=== PATIENT | female | born 1970 | race Caucasian/White ===

== ENCOUNTER 2020-04-05 16:15 | Emergency (ER) | payer OTHER ==
[~2020-04-05] VITALS: Ht 165.1 cm; Wt 68.9 kg
[2020-04-05] MEDS ORDERED: HYDROMORPHONE 1MG/1ML INJ IV STA ×2 (16:22→19:04)
[2020-04-05] MEDS ORDERED: ONDANSETRON HCL INJ 2MG/ML 2ML 2 MG/ML VIAL IV STA ×2 (16:22→19:04)
--- NOTE | 2020-04-05 16:37 | Emergency Department Note ---
History of Present Illnes History of Present Illness Chief Complaint: Abdominal Complaints History of Present Illness This is a 49 year old female patient is here for abdominal swelling, pain diffuse 8 out of 10 with no modifying factors and "" coffee-ground emesis. Patient also noted bright red blood per rectum. This has been going on for 1 week. Patient did see her GI doctor Nikki. Pt told she was hiatal hernia and erosive gastritis. . Onset (how long ago): week(s) (1) Location: abd, diffuse Quality: ache Radiation: Reports non-radiation Severity: severe Onset quality: gradual Duration (how long): week(s) Progression: worsening Chronicity: new Context: Denies recent illness, Denies recent surgery, Denies recent immobiliz ation Relieving factors: none Exacerbating factors: none Associated symptoms: Reports loss of appetite, Reports nausea/vomiting (GRUPO HAMPTON MD) Past Medical/Family History Physician Review I have reviewed the patient's past medical and family history. Any updates have been documented here. (GRUPO HAMPTON MD) Review of Systems Review of Systems Constitutional: Reports as per HPI EENTM: Reports no symptoms Cardiovascular: Reports no symptoms Respiratory: Reports no symptoms Gastrointestinal: Reports as per HPI Genitourinary: Reports no symptoms Musculoskeletal: Reports no symptoms Integumentary: Reports no symptoms Neurological: Reports no symptoms Psychological: Reports no symptoms Endocrine: Reports no symptoms Hematological/Lymphatic: Reports no symptoms (GRUPO HAMPTON MD) Physical Exam Related Data Allergies: Uncoded Allergies: ARITHROMYCIN (Allergy, Severe, RASH, SWELLING IN THROAT, 04/05/20) Physical Exam CONSTITUTIONAL Constitutional: Present well-developed, Present well-nourished HENT HENT: Present normocephalic, Present atraumatic, Present oropharynx clear/nav[address] st, Present nose normal HENT L/R: Present left ext ear normal, Present right ext ear normal EYES Eyes: Reports PERRL, Reports conjunctivae normal NECK Neck: Present ROM normal PULMONARY Pulmonary: Present effort normal, Present breath sounds normal CARDIOVASCULAR Cardiovascular: Present regular rhythm, Present heart sounds normal, Present capillary refill normal, Present normal rate GASTROINTESTINAL Abdominal: Present soft, Present bowel sounds normal, Present distension, Present tender (diffusely TTP, no peritonitis ) GENITOURINARY Genitourinary: Present exam deferred SKIN Skin: Present warm, Present dry MUSCULOSKELETAL Musculoskeletal: Present ROM normal NEUROLOGICAL Neurological: Present alert, Present oriented x 3, Present no gross motor or sensory deficits PSYCHOLOGICAL Psychological: Present mood/affect normal, Present judgement normal (GRUPO HAMPTON MD) Results Laboratory Lab results reviewed: Yes Laboratory comments Laboratory Tests Test 04/05/20 16:58 White Blood Count 7.76 x10e3/uL (4.8-10.8) Red Blood Count 4.43 x10e6/uL (3.6-5.1) Hemoglobin 13.4 g/dL (12.0-16.0) Hematocrit 40.6 % (34.2-44.1) Mean Corpuscular Volume 91.6 fL (81-99) Mean Corpuscular Hemoglobin 30.2 pg (28-32) Mean Corpuscular Hemoglobin Concent 33.0 g/dL (31-35) Red Cell Distribution Width 12.3 % (11.7-14.4) Platelet Count 277 x10e3/uL (140-360) Neutrophils (%) (Auto) 58.5 % (38.7-80.0) Lymphocytes (%) (Auto) 31.7 % (18.0-39.1) Monocytes (%) (Auto) 6.2 % (4.4-11.3) Eosinophils (%) (Auto) 2.2 % (0.0-6.0) Basophils (%) (Auto) 0.5 % (0.0-1.0) Neutrophils # (Auto) 4.5 (2.1-6.9) Lymphocytes # (Auto) 2.5 (1.0-3.2) Monocytes # (Auto) 0.5 (0.2-0.8) Eosinophils # (Auto) 0.2 (0.0-0.4) Basophils # (Auto) 0.0 (0.0-0.1) Absolute Immature Granulocyte (auto 0.07 x10e3/uL (0-0.1) Prothrombin Time 12.5 seconds (11.9-14.5) Prothromb Time International Ratio 0.89 Urine Color Yellow (YELLOW) Urine Clarity Sl cloudy (CLEAR) Urine pH 5 (5 - 7) Urine Specific [place] 1.010 (1.010-1.025) Urine Protein Negative (NEGATIVE) Urine Glucose (UA) Negative (NEGATIVE) Urine Ketones Negative (NEGATIVE) Urine Blood Trace (NEGATIVE) Urine Nitrite Negative (NEGATIVE) Urine Bilirubin Negative (NEGATIVE) Urine Urobilinogen 0.2 mg/dL (0.2 - 1) Urine Leukocyte Esterase Negative (NEGATIVE) Urine RBC 0-5 /HPF (0-5) Urine WBC None /HPF (0-5) Urine Epithelial Cells Few /LPF (NONE) Urine Bacteria Rare /HPF (NONE) Urine Hyaline Casts 2-5 (0-1) Sodium Level 139 mmol/L (136-145) Potassium Level 3.7 mmol/L (3.5-5.1) Chloride Level 106 mmol/L (98-107) Carbon Dioxide Level 20 mmol/L (22-29) Anion Gap 16.7 mmol/L (8-16) Blood Urea Nitrogen 14 mg/dL (7-26) Creatinine 0.80 mg/dL (0.57-1.11) Estimat Glomerular Filtration Rate > 60 ML/MIN (60-) BUN/Creatinine Ratio 18 (6-25) Glucose Level 82 mg/dL (74-118) Calcium Level 9.7 mg/dL (8.4-10.2) Total Bilirubin 0.2 mg/dL (0.2-1.2) Aspartate Amino Transf (AST/SGOT) 14 IU/L (5-34) Alanine Aminotransferase (ALT/SGPT) 15 IU/L (0-55) Alkaline Phosphatase 173 IU/L (40-150) Total Protein 7.6 g/dL (6.5-8.1) Albumin 4.1 g/dL (3.5-5.0) Globulin 3.5 g/dL (2.3-3.5) Albumin/Globulin Ratio 1.2 (0.8-2.0) Lipase 16 U/L (8-78) (REID,PEYTON DO) Imaging Imaging results reviewed: Yes Impressions [place] [address] Patient Name: KAREN HENRY MR #: [id number] : 1970 Age/Sex: 49/F Req #: [id number] Adm Physician: Ordered by: GRUPO HAMPTON MD Report #: [id number] Location: ER Room/Bed: Procedure: [id number] CT/CTA ABD/PELVIS Exam Date: 04/05/20 Exam Time: 1814 REPORT STATUS: Signed EXAM: CTA of the Abdominal Aorta and Pelvic Arteries WITH Contrast INDICATION: Diffuse abdominal pain. COMPARISON: None. TECHNIQUE: Multi-detector CT technology was employed. CTA of the abdomen and pelvis was performed after the administration of IV contrast. IV CONTRAST: 150 mL of Omnipaque 350 ORAL CONTRAST: None COMPLICATIONS: None RADIATION DOSE: Total DLP: 1218.58 mGy*cm Estimated effective dose: (DLP x 0.015 x size factor) mSv CTDIvol has been reviewed. It is below the limits set by the Radiation Protocol Committee (RPC). Dose modulation, iterative reconstruction, and/or weight based adjustment of the mA/kV was utilized to reduce the radiation dose to as low as reasonably achievable. For optimization of anatomic evaluation, multiplanar reconstruction, maximum intensity projections, and advanced 3-D off-line postprocessing were performed on a dedicated stand-alone workstation under the direct supervision of the interpreting physician. FINDINGS: Potential study limitations: None. VASCULAR WITH ADVANCED 3-D OFF-LINE POSTPROCESSING: The abdominal aorta is normal in course, caliber, and contour. There is no acute aortic pathology . Aortic plaques: Mild. The abdominal aorta measures: 2.3 x 2.2 cm at the supramesenteric segment 2.0 x 2.0 cm at the mesenteric segment 1.9 x 1.9 cm at the renal segment 1.6 x 1.5 cm at the mid infrarenal segment 1.4 x 1.4 cm at the aortic bifurcation. The celiac axis, SMA, and RAJENDRA are patent. There are single renal arteries bilaterally, both of which appear patent. The pelvic arteries are normal in caliber and contour. There are mild atherosclerotic changes of the pelvic arteries. 1.1x 1.0 cm at the right common iliac artery 1.1 x 1.1 cm at the right external iliac artery LOWER CHEST: Unremarkable. ABDOMEN: The liver, gallbladder, spleen, and pancreas appear normal. The adrenal glands appear normal. Both kidneys are normal in size, shape, and density. There is no abnormal mass or hydronephrosis. There is a 2 mm nonobstructive stone in the midpole of the left kidney. PELVIS: There is no significant retroperitoneal adenopathy. No free fluid or free air within the abdomen or pelvis. The bowel appears unremarkable. The urinary bladder appears normal. BONES: Status post L4-L5 posterior spinal fusion. No evidence of hardware complication. Multilevel degenerative spine disease with no suspicious osteolytic or osteoblastic lesions. Soft tissues: Incompletely imaged dense structure in the anterior lower pelvic soft tissues. IMPRESSION: 1. Normal abdominal aorta. No acute abdominal aortic pathology. 2. Nonobstructive left nephrolithiasis. Signed by: Harhs Cardenas MD on 04/05/2020 7:34 PM Dictated By: HARSH CARDENAS MD 33 Transcribed By: CATALINA on 04/05/201933 COPY TO: GRUPO HAMPTON MD~ (PEYTON REID DO) Assessment & Plan Medical Decision Making MDM Patient is a 49-year-old female with diffuse abdominal pain, abdominal distention and rectal bleeding with "coffee-ground emesis. The patient appears to be cirrhotic, we will workup and discuss case with GI doctor. (GRUPO HAMPTON MD) [facility] cbc and CTA abdomen reviewed. Patient with marked improvement in symptoms s/p IV pain medication. Dr Lopez called but no return in phone call. Plan to discharge to home. (PEYTON REID DO) Reassessment Reassessment EKG shows interpreted by me sinus tachycardia, normal intervals, normal axis, no acute ST changes. (GRUPO HAMPTON MD) Assessment & Plan Final Impression: (1) Abdominal pain (2) Nausea & vomiting (GRUPO HAMPTON MD) Depart Disposition: HOME, SELF-CARE Last Vital Signs Date Time Temp Pulse Resp B/P (MAP) Pulse Ox O2 Delivery O2 Flow Rate FiO2 04/05/20 19:57 97 18 100 04/05/20 19:03 98.4 112/84 Room Air (PEYTON REID DO) Medications in the ED Hydromorphone HCl 0.5 mg NOW STAT IV ; Start 04/05/20 at 16:22; Stop 04/05/20 at 16:23; Status UNV Ondansetron HCl 4 mg NOW STAT IV ; Start 04/05/20 at 16:22; Stop 04/05/20 at 16:23; Status UNV (GRUPO HAMPTON MD) Medications in the ED Hydromorphone HCl 0.5 mg NOW STAT IV Last administered on 04/05/20at 17:17; Admin Dose 0.5 MG; Start 04/05/20 at 16:22; Stop 04/05/20 at 20:03; Status DC Ondansetron HCl 4 mg NOW STAT IV Last administered on 04/05/20at 17:17; Admin Dose 4 MG; Start 04/05/20 at 16:22; Stop 04/05/20 at 20:03; Status DC Sodium Chloride 100 ml @ ud STK-MED ONCE .ROUTE ; Start 04/05/20 at 18:09; Stop 04/05/20 at 18:03; Status DC Iopamidol 74,000 mg STK-MED ONCE INJ ; Start 04/05/20 at 18:09; Stop 04/05/20 at 18:03; Status DC Hydromorphone HCl 1 mg NOW STAT IV Last administered on 04/05/20at 19:25; Admin Dose 1 MG; Start 04/05/20 at 19:04; Stop 04/05/20 at 20:03; Status DC Ondansetron HCl 4 mg NOW STAT IV Last administered on 04/05/20at 19:26; Admin Dose 4 MG; Start 04/05/20 at 19:04; Stop 04/05/20 at 20:03; Status DC (REID,PEYTON DO) GRUPO HAMPTON MD Apr 05, 2020 16:37 PEYTON REID DO Apr 05, 2020 19:45
[2020-04-05 17:12] LABS: BASOPHILS % 0.5 % (0.0-1.0); EOSINOPHILS # (AUTO) 0.2 (0.0-0.4); EOSINOPHILS % 2.2 % (0.0-6.0); HEMATOCRIT 40.6 % (34.2-44.1); HEMOGLOBIN 13.4 g/dL (12.0-16.0); LYMPHOCYTES # (AUTO) 2.5 (1.0-3.2); LYMPHOCYTES % 31.7 % (18.0-39.1); MEAN CORPUSCULAR HEMOGLOBIN 30.2 pg (28-32); MEAN CORPUSCULAR VOLUME 91.6 fL (81-99); MONOCYTES # (AUTO) 0.5 (0.2-0.8); MONOCYTES % 6.2 % (4.4-11.3); NEUTROPHILS # (AUTO) 4.5 (2.1-6.9); NEUTROPHILS % 58.5 % (38.7-80.0); PLATELET COUNT 277 x10e3/uL (140-360); RED BLOOD COUNT 4.43 x10e6/uL (3.6-5.1); RED CELL DISTRIBUTION WIDTH 12.3 % (11.7-14.4)
[2020-04-05 17:13] LABS: CLARITY,URINE SL CLOUDY (CLEAR); COLOR,URINE YELLOW (YELLOW); LEUKOCYTE ESTERASE ,URINE NEGATIVE (NEGATIVE); NITRITE,URINE NEGATIVE (NEGATIVE)
[2020-04-05 17:14] LABS: BILIRUBIN,URINE NEGATIVE (NEGATIVE); KETONES,URINE NEGATIVE (NEGATIVE); PROTEIN,URINE DIPSTICK NEGATIVE (NEGATIVE); URINE UROBILINOGEN 0.2 mg/dL (0.2 - 1)
[2020-04-05 17:23] LABS: INR 0.89; PROTHROMBIN TIME 12.5 seconds (11.9-14.5)
[2020-04-05 17:25] LABS: BACTERIA,URINE RARE /HPF; EPITHELIAL CELLS,URINE FEW /LPF; RBC,URINE 0-5 /HPF (0-5)
[2020-04-05 17:31] LABS: ALANINE AMINOTRANSFERASE 15 IU/L (0-55); ALBUMIN 4.1 g/dL (3.5-5.0); ALBUMIN/GLOBULIN RATIO 1.2 (0.8-2.0); ALKALINE PHOSPHATASE 173 IU/L (40-150); ANION GAP 16.7 mmol/L (8-16); BLOOD UREA NITROGEN 14 mg/dL (7-26); BUN/CREATININE RATIO 18 (6-25); CALCIUM 9.7 mg/dL (8.4-10.2); CARBON DIOXIDE 20 mmol/L (22-29); CHLORIDE 106 mmol/L (98-107); EST GLOMERULAR FILTRATION RATE > 60 ML/MIN (60-); GLUCOSE 82 mg/dL (74-118); LIPASE 16 U/L (8-78); POTASSIUM 3.7 mmol/L (3.5-5.1); SODIUM 139 mmol/L (136-145)
--- OUTSIDE RECORDS SUMMARY | 2020-04-05 17:48 | XMS REPORT | Clinical Summary ---
Author Author [employer] Organization [employer] Address Unknown Phone Unavailable Care Team Providers Care Prop Sawyer Name Role Phone HumphreymikalLucretia dawn Alexandra [employer] PCP Allergies Comments Active Allergy Reactions Severity Noted Date Erythromycin Rash Low 01/29/2008 Medications End Date Status Medication Sig Dispensed Refills Start Date Active albuterol (PROAIR HFA) 90 Inhale. 0 05/14 8/200 mcg/actuation inhaler 8 Active clonAZEPAM (KlonoPIN) 1 1 mg. 0 MG tablet 4 Active imipramine (TOFRANIL) 50 0 MG tablet 7 Active traMADol (ULTRAM) 50 mg 0 tablet 7 Active cyclobenzaprine 0 (FLEXERIL) 10 mg tablet 7 Active keTOROlac (TORadol) 10 mg 0 tablet 7 Active cyclobenzaprine TAKE ONE 40 tablet 0 (FLEXERIL) 10 mg TABLET BY 7 tabletIndications: MOUTH EVERY 8 History of spinal fusion, HOURS Lumbar radiculopathy NEEDED FOR MUSCLE SPASM Active gabapentin (NEURONTIN) TAKE ONE 60 capsule 2 300 mg capsule CAPSULE BY 8 MOUTH THREE TIMES DAILY Active Problems No known active problems Encounters Care Team Description Date Type Specialty Fran Luis MD Altered mental status, unspecified alter ed mental status type (Primary Dx) 10/17/2019 Emergency Emergency Medicine after 04/05/2019 Social History Date Tobacco Use Types Packs/Day Years Used Current Every Day Smoker Smokeless Tobacco: Never Used Drinks/Week oz/Week Comments Alcohol Use Yes Sex Assigned at Date Recorded Not on file Industry Job Start Date Occupation Not on file Not on file Not on file Travel End Travel History Travel Start No recent travel history available. Last Filed Vital Signs Reading Time Taken Comments Vital Sign 125/76 10/17/2019 6:28 PM [employer] Blood Pressure 89 10/17/2019 6:28 PM [employer] Pulse 36.6 C (97.8 F) 10/17/2019 6:28 PM [employer] Temperature 12 10/17/2019 6:28 PM [employer] Respiratory Rate 96% 10/17/2019 6:28 PM [employer] Oxygen Saturation - - Inhaled Oxygen Concentration 65.8 kg (145 lb) 10/17/2019 6:36 PM [employer] Weight 172.7 cm (5' 8") 10/17/2019 6:36 PM [employer] Height 22.05 10/17/2019 6:36 PM [employer] Body Mass Index Plan of Treatment Health Maintenance Due Date Last Done Comments CERVICAL CANCER SCREENING 1989 BREAST CANCER SCREENING 2018 COLONOSCOPY SCREENING 2018 SHINGLES VACCINES (#1) 2018 INFLUENZA VACCINE 05/13/2020 Procedures Comments Procedure Name Priority Date/Time Associated Diag nosis ECG 12-LEAD STAT 10/17/2019 8:05 PM [employer] ECG ED PRELIMINARY Routine 10/17/2019 INTERPRETATION 7:33 PM [employer] after 04/05/2019 Results * ECG 12 lead (10/17/2019 8:05 PM [employer]) Ventricular 77 [facility] rate Atrial rate 77 [facility] NE interval 158 [facility] QRSD interval 94 [facility] QT interval 382 [facility] QTC interval 432 [facility] P axis 1 13 [facility] QRS axis 1 33 [facility] T wave axis 49 [facility] EKG impression Normal sinus rhythm-Normal [facility] ECG-No previous ECGs available- Specimen Narrative Performed At This result has an attachment that is n ot available. 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 Previous ECG: Previous ECG: Unavailable Interpretation: Interpretation: normal Rate: ECG rate: 77 bpm ECG rate assessment: normal Rhythm: Rhythm: sinus rhythm Ectopy: Ectopy: none QRS: QRS axis: Normal QRS intervals: Normal Conduction: Conduction: normal ST segments: ST segments: Normal T waves: T waves: normal Comments: Pr: 158 ms Qtc: 432 ms after 04/05/2019 Insurance Type Payer Benefit Subscriber ID Effective Phone Address Plan / Dates Group HMO [employer] xxxxxxxxx [id number] [employer] [facility] Advance Directives For more information, please contact: [phone] 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
--- OUTSIDE RECORDS SUMMARY | 2020-04-05 17:49 | XMS REPORT ---
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 [place] treated with anti TB drug for 9 months in [address] active [facility] Hypercalcemia active [facility] [place] Hyperlipidemia active [facility] Menopause-related vasomotor symptoms, hot flashes active [facility] Breast, screening for malignant neoplasm active [facility] Well woman exam active [facility] Febrile illness active Ilda Curtis Pre-exposure Prophylaxis active Petra Minor DEPRESSIVE DISORDER, MAJOR, RECURRENT EPISODE, MODERATE active Danna Hunter GENERALIZED ANXIETY DISORDER active Danna martin PTSD active Danna Hunter BMI 21.0-21.9 active Tommy Cottrell Anxiety completed - Danna Hunter Lump, in scalp active Mahim Shuja Restless leg syndrome active Mahim Shuja Chronic back pain active Mahim Shuja Rash active Zackary Abdirizak Possibly 2* med ication given onset timing per patient relative to new medication; Resolved at time of office visit. Joint stiffness active Zackary Abdirizak chronic, AM x 30 minutes, hands, knees primarily Failed back syndrome of lumbar spine active Zackary Abdirizak Medication monitoring active Zackary Abdirizak Hx of spinal fusion active Zackary Abdirizak History of substance abuse active Zackary Abdirizak A mphetamine + October 2017 Smoker active Zackary Abdirizak Bipolar I dsord ,most recent epsd, unspec active Jaylin Loredo ENCOUNTERS Date Type Provider Location Encounter Diagn osis - Ambulatory Encounter Margaux Villafanasylvia rodriguezstanley [place] UNK - Ambulatory Encounter Radhaharjit Wilkinsonkeagan Melendrez nkLogic UNK - Ambulatory Encounter Danna Hunter UNK - Ambulatory Encounter Danna Hunter UNK - Ambulatory Encounter Danna Hunter UNK - Ambulatory Encounter Danna Novak UNK - Ambulatory Encounter Radha Minhkeagan Melendrez nkLogic UNK - Ambulatory Encounter Radha Minhkeagan Melendrez nkLogic UNK - Ambulatory Encounter Dede Mao UNK - Ambulatory Encounter Nicolasa Looney UNK - Ambulatory Encounter Jason Rolle UNK - Ambulatory Encounter Radha Melendrez nkLogic UNK - Ambulatory Encounter Jason MittalLogzeina UNK - Ambulatory Encounter Danna Hunter UNK - Ambulatory Encounter Jason Boudreaux Exposure to COVID-19 coronav irus - Ambulatory Encounter Minh Cifuentes UNK - Ambulatory Encounter Tommy Cottrell [facility] [place] [facility] [facility] [place] - Ambulatory Encounter [place] [facility] [place] - Ambulatory Encounter [place] [facility] [place] - Ambulatory Encounter [place] [facility] [place] - Ambulatory Encounter [place] [facility] [place] - Ambulatory Encounter Tommy Connell [place] [facility] [place] [facility] [place] Victorina Marcus Hx of tuber culosis - Ambulatory Encounter Danna Nye UNK - Ambulatory Encounter Danna Hunter UNK - Ambulatory Encounter Fax Status [facility] UNK - Ambulatory Encounter Fax Status [facility] UNK - Ambulatory Encounter Fax Status [facility] UNK - Ambulatory Encounter Nicolasa escamillamethais [facility] [place] [facility] [place] Elicia Chicas UNK - Ambulatory Encounter [place] [facility] [place] HyperlipidemiaHypercal cemiaElevated alkaline phosphatase - Ambulatory Encounter Tommy Cottrell [facility] [place] [facility] [place] UNK - Ambulatory Encounter [place] C h[place]ian [place] [facility] UNK - Ambulatory Encounter [place] C hristian [place] [facility] [place] UNK - Ambulatory Encounter [place] C [place]ian [place] [facility] [place] UNK - Ambulatory Encounter Tommy Guaman Ethel Kim [place] [facility] [place] [facility] [place] Victorina Marcus Well woman examBreast, screening for malignant neoplasmMenopause-related vasomotor symptoms, hot flashes - Ambulatory Encounter Danna Devante dimitri Danna Dale UNK - Ambulatory Encounter Danna Devante dimitri Danna Hunterdimitri Nye UNK - Ambulatory Encounter Danna Devante dimitri Danna Hunterdimitri Scott UNK - Ambulatory Encounter Danna Devante dimitri Danna Hunterdimitri Novak UNK - Ambulatory Encounter Danna Devante dimitri Danna Hunter UNK - Ambulatory Encounter Danna Devante dimitri Danna Hunterdimitri Rivera UNK - Ambulatory Encounter Danni harper UNK - Ambulatory Encounter Ildamago Monte Kelsey [facility] Chasidy Abraham UNK - Ambulatory Encounter Ilda Curtis LinkLogic UNK - Ambulatory Encounter Danna Devante Hunter UNK - Ambulatory Encounter Danna Devante Hunter UNK - Ambulatory Encounter Ny Chicas UNK - Ambulatory Encounter Ilda MittalLogzeina UNK - Ambulatory Encounter Ilda Serrano grace UNK - Ambulatory Encounter Ilda Rosales Sukumar Febrile illness - Ambulatory Encounter Danna Devante Hunter Jaimee Novak UNK - Ambulatory Encounter Danna Devante Hunter Saskia Neves UNK - Ambulatory Encounter Danna Devante Hunter Saskia Neves UNK - Ambulatory Encounter Danna Devante Hunter Nicolasa Pearl UNK - Ambulatory Encounter Danna Devante Hunter UNK - Ambulatory Encounter Danna Devante Hunter Jaimee Finley UNK - Ambulatory Encounter Danna Devante Hunter UNK - Ambulatory Encounter Danna Devante Hunter UNK - Ambulatory Encounter Danna Devante Hunter Ursula Novak UNK - Ambulatory Encounter Danna Devante Hunter UNK - Ambulatory Encounter Danna Devante Hunter UNK - Ambulatory Encounter Danna Devante Hunter Angelo Aretha UNK - Ambulatory Encounter Danna Devante Hunter Ursula Rivera UNK - Ambulatory Encounter [facility] Provider Fly Zimmerman UNK - Ambulatory Encounter Dannadakotah Hnuter UNK - Ambulatory Encounter Dannadakotah Hunter Ursula Nye UNK - Ambulatory Encounter Patric No [facility] UNK - Ambulatory Encounter Patric No [facility] UNK - Ambulatory Encounter Fly Zimmerman UNK - Ambulatory Encounter Patric Lambert Minor Pre-exposure Prophylaxis - Ambulatory Encounter [facility] Provider Fly Zimmerman UNK - Ambulatory Encounter Ny [facility] UNK - Ambulatory Encounter Dannadakotah Hunter Mayelin Scott UNK - Ambulatory Encounter Dannadakotah Hunter UNK - Ambulatory Encounter Danna Devante Hunter Rosie Isaac UNK - Ambulatory Encounter Fax Status LinkLogic UNK - Ambulatory Encounter Dannadakotah Hunter UNK - Ambulatory Encounter Danna Devante Hunter [facility]Logic UNK - Ambulatory Encounter Danna Hunter UNK - Ambulatory Encounter Fax Status [facility] UNK - Ambulatory Encounter Tommy Hubert Parry [facility] UNK - Ambulatory Encounter Danna Hunter UNK - Ambulatory Encounter Tommy Parry MedAdherence UNK - Ambulatory Encounter Danna Hunter UNK - Ambulatory Encounter Danna Hunter Ursula Nye DEPRESSIVE DISORDER, MAJOR, RECURRENT EPISODE, MODERATE - Ambulatory Encounter Danna Hunter Danna Mcodnald UNK - Ambulatory Encounter Danna Hunter [facility] UNK - Ambulatory Encounter Danna Hunter [facility] UNK - Ambulatory Encounter Danna Hunter UNK - Ambulatory Encounter Danna Hunter UNK - Ambulatory Encounter Danna Hunter UNK - Ambulatory Encounter Danna Hunter UNK - Ambulatory Encounter Dannadakotah Hunter Ursula Nye AnxietyPTSDGENERALIZED ANXIE TY DISORDER - Ambulatory Encounter Radha Boudreaux UNK - Ambulatory Encounter Madelyn Parry Med Adherence UNK - Ambulatory Encounter Madelyn Parry Med Adherence UNK - Ambulatory Encounter Dmitriy Izaguirre Sh uja UNK - Ambulatory Encounter Elijah Manuel lucas UNK - Ambulatory Encounter Miryam Ruano [facility] Manuel Jackson Olivia Colindres UNK - Ambulatory Encounter Tommy Cottrell LinkLogic Dmitriy Jackson UNK - Ambulatory Encounter Tommy Cottrell [facility] UNK - Ambulatory Encounter Elijah Manuel lucas Lump, in scalp - Ambulatory Encounter Fax Status LinkLogic UNK - Ambulatory Encounter Fax Status [facility] UNK - Ambulatory Encounter Fax Status [facility] UNK - Ambulatory Encounter Fax Status [facility] UNK - Ambulatory Encounter Fax Status [facility] UNK - Ambulatory Encounter Fax Status [facility]ic UNK - Ambulatory Encounter Elijah Manuel lucas UNK - Ambulatory Encounter Elijah Manuel lucas UNK - Ambulatory Encounter Tommy Ruano [facility] Thierry Cevallos Chronic back painRestless leg syndromeLump, in scalpAnxietyBMI 21.0-21.9 - Ambulatory Encounter Bhumika Yan UNK - Ambulatory Encounter Madelyn Parry Med Adherence UNK - Ambulatory Encounter Madelyn pulido MedAdherence LinkLogic UNK - Ambulatory Encounter Joon Manzano UNK - Ambulatory Encounter Zackary Abdirizak Zackary Nole n UNK - Ambulatory Encounter Zackary Abdirizak Zackary N velma LinkLogic UNK - Ambulatory Encounter Stefanie Stout UNK - Ambulatory Encounter Stefanie Stout UNK - Ambulatory Encounter Stefanie Stout UNK - Ambulatory Encounter Sherrie Newsome Ursula Popeye UNK - Ambulatory Encounter Sherrie Mercedez UNK - Ambulatory Encounter Sherrie Almanzajia Lishatonya Colindres UNK - Ambulatory Encounter Riri Louie UNK - Ambulatory Encounter Zackary Abdirizak Zackary Nole n UNK - Ambulatory Encounter Zackary Abdirizak Er ic Abdirizak LinkLogic Riri Louie UNK - Ambulatory Encounter Zackary Abdirizak Zackary Nole n UNK - Ambulatory Encounter Zackary Abdirizak Zackary Nole n UNK - Ambulatory Encounter Zackary Abdirizak Er ic Abdirizak Hailey Guadarrama Zuluaga Bipolar I dsord ,most recent epsd, unspecSmokerHistory of substance abuseHx of spinal fusionMedication monitoringFailed back syndrome of lumbar spineJoint stiffnessRash VITAL SIGNS Date Observation Value Provider temperature site oral Ericka Boudreaux " temperature E&M 99.0 [degF] Ericka Boudreaux " weight E&M 159 lbs. Ericka Boudreaux " weight in kilograms E&M 72.27 kg Ericka Boudreaux " height E&M 68 [in_i] Jason Rolle " height in centimeters E&M 172.72 cm Phillip Rolle BP diastolic #1 90 mm[Hg] Victorina Enrriqueill o Amrit " BP systolic #1 146 mm[Hg] Victorina Enrriqueill o Amrit " blood pressure, diastolic, second observation 79 mm[Hg] Victorina Marcus " blood pressure, systolic, second observation 113 mm[Hg] Victorina Marcus " oxygen saturation, oximetry 98 % Triston Marcus " method used to obtain blood pressure automatic Victorina Marcus " Blood Pressure Position 01 sitting Verito ttbecka Marcus " blood pressure, site #1 left arm Victorina Marcus " blood pressure, diastolic 79 mm[Hg] Eleni Bah " blood pressure, systolic 113 mm[Hg] Joaquin Marcus " respiratory rate E&M 16 /min Victorina Marcus " pulse rate 95 /min Victorina Marcus " temperature site oral Victorina Marcus " temperature E&M 98.4 [degF] Victorina Marcus " weight E&M 159 lbs. Victorina Marcus " weight in kilograms E&M 72.27 kg Victorina Marcus " height E&M 68 [in_i] Victorina Marcus " height in centimeters E&M 172.72 cm Eleni Bah BP diastolic #1 84 mm[Hg] Ethel River a " BP systolic #1 145 mm[Hg] Ethel River a " pulse rate #2 96 Ethel River a " blood pressure, diastolic, second observation 78 mm[Hg] Ethel Kim " blood pressure, systolic, second observation 120 mm[Hg] Ethel Kim " oxygen saturation, oximetry 96 % Triston Marcus " method used to obtain blood pressure automatic Victorina Marcus " Blood Pressure Position 01 sitting Verito lalo Marcus " blood pressure, site #1 left arm Victorina Marcus " blood pressure, diastolic 78 mm[Hg] Vera line Kim " blood pressure, systolic 120 mm[Hg] Jacquel ine Kim " respiratory rate E&M 18 /min Victorina Marcus " pulse rate 98 /min Victorina Marcus " temperature site oral Victorina Marcus " temperature E&M 99.3 [degF] Victorina Marcus " weight E&M 156.20 lbs. Victorina Marcus " weight in kilograms E&M 71 kg Victorina Marucs " height E&M 68 [in_i] Victorina Marcus " height in centimeters E&M 172.72 cm Eleni Bah method used to obtain blood pressure automatic Jewel Patino " Blood Pressure Position 01 sitting Jewel Patino " blood pressure, site #1 left arm Jewel dawn " blood pressure, diastolic 78 mm[Hg] Jewel Patino " blood pressure, systolic 132 mm[Hg] Jewel Patino " respiratory rate E&M 20 /min Jewel hart " pulse rate 86 /min Jewel Patino " oxygen saturation, oximetry 98 % Jewel Patino " temperature site oral Jewel Patino " temperature E&M 99.5 [degF] Jewel Patino " weight E&M 140.13 lbs. Jewel Patino " weight in kilograms E&M 63.70 kg Jewel dawn " height E&M 68 [in_i] Jewel Patino " height in centimeters E&M 172.72 cm Jewel Patino pulse rate 89 /min Jaimee Finley " method used to obtain blood pressure automatic Jaimee Finley " Blood Pressure Position 01 sitting Nacho Finley " blood pressure, site #1 left arm Jaimee B eltran " blood pressure, diastolic 83 mm[Hg] Jaimee Finley " blood pressure, systolic 131 mm[Hg] Jaimee Finley " height E&M 68 [in_i] Jaimee Finley " height in centimeters E&M 172.72 cm Jaimee Finley " weight E&M 140.13 lbs. Jaimee Finley " weight in kilograms E&M 63.70 kg Jaimee B eltran method used to obtain blood pressure automatic Angelo Carias " Blood Pressure Position 01 sitting George Carias " blood pressure, site #1 right arm Angelo Carias " blood pressure, diastolic 92 mm[Hg] Tobin Carias " blood pressure, systolic 157 mm[Hg] Hailey Carias " pulse rate 114 /min Angelo Carias " weight E&M 143 lbs. Angelo Carias " weight in kilograms E&M 65 kg Angelo Carias " height E&M 68 [in_i] Angelo Carias " height in centimeters E&M 172.72 cm Tobin Carias method used to obtain blood pressure automatic Rosie Marlin " Blood Pressure Position 01 sitting Dalil a Marlin " blood pressure, site #1 left arm Rosie O rtuno " blood pressure, diastolic 83 mm[Hg] Rosie Marlin " blood pressure, systolic 123 mm[Hg] Rosie Marlin " pulse rate 69 /min Rosie Marlin " weight E&M 153.25 lbs. Rosie Marlin " weight in kilograms E&M 69.66 kg Rosie O rtuno " height E&M 68 [in_i] Rosie Marlin " height in centimeters E&M 172.72 cm Rosie Marlin method used to obtain blood pressure automatic Ursula Popeye " Blood Pressure Position 01 sitting Ursula Popeye " blood pressure, site #1 left arm Ursula Ga rcia " blood pressure, diastolic 78 mm[Hg] Ursula Popeye " blood pressure, systolic 116 mm[Hg] Ursula G ellen " pulse rate 94 /min Ursula Popeye " weight E&M 144.60 lbs. Ursula Popeye " weight in kilograms E&M 65.73 kg Ursula Ga rcia " height in centimeters E&M 172.72 cm Ursula Popeye " height E&M 68 [in_i] Ursula Popeye method used to obtain blood pressure automatic Ursula Popeye " Blood Pressure Position 01 sitting Ursula Popeye " blood pressure, site #1 left arm Ursula Ga rcia " blood pressure, diastolic 90 mm[Hg] Ursula Popeye " blood pressure, systolic 147 mm[Hg] Ursula G ellen " pulse rate 105 /min Ursula Popeye " weight E&M 139.80 lbs. Ursula Nye " weight in kilograms E&M 63.55 kg Ursula Patrice cobb " height in centimeters E&M 172.72 cm Ursula Nye " height E&M 68 [in_i] Ursula Nye oxygen saturation, oximetry 98 % Janee Colindres " method used to obtain blood pressure manual Olivia Colindres " Blood Pressure Position 01 sitting Olivia Colindres " blood pressure, site #1 left arm Olivia gallagher " blood pressure, diastolic 76 mm[Hg] Olivia Colindres " blood pressure, systolic 124 mm[Hg] Olivia glass " respiratory rate E&M 20 /min Olivia abdi " pulse rate 92 /min Olivia Colindres " temperature site oral Olivia Colindres " temperature E&M 99.2 [degF] Olivia Colindres " weight E&M 138.60 lbs. Olivia Colindres " weight in kilograms E&M 63 kg Olivia gallagher " height E&M 68 [in_i] Olivia Colindres " height in centimeters E&M 172.72 cm Olivia Colindres oxygen saturation, oximetry 98 % Lawanda na Pool " method used to obtain blood pressure automatic Mireille Pool " Blood Pressure Position 01 sitting Selen a Pool " blood pressure, site #1 right arm Mireille P ool " blood pressure, diastolic 69 mm[Hg] Mireille Pool " blood pressure, systolic 120 mm[Hg] Mireille Pool " respiratory rate E&M 20 /min Mireille Pool " pulse rate 83 /min Mireille Pool " temperature site oral Mireille Pool " temperature E&M 98.6 [degF] Mireille Pool " weight E&M 139.40 lbs. Mireille Pool " weight in kilograms E&M 63.36 kg Mireille P ool " height E&M 68 [in_i] Mireille Pool " height in centimeters E&M 172.72 cm Mireille Pool oxygen saturation, oximetry 98 % Rafiq us Connell " method used to obtain blood pressure automatic Aurea Connell " Blood Pressure Position 01 sitting Alexu s Connell " blood pressure, site #1 right arm Aurea H aubrey " blood pressure, diastolic 76 mm[Hg] Aurea Connell " blood pressure, systolic 128 mm[Hg] Aurea Connell " respiratory rate E&M 17 /min Aurea Kartik era " pulse rate 73 /min Aurea Connell " temperature site oral Aurea Connell " temperature E&M 98.2 [degF] Aurea Connell " weight E&M 143 lbs. Aurea Connell " weight in kilograms E&M 65 kg Aurea H aubrey " height E&M 68 [in_i] Aurea Connell " height in centimeters E&M 172.72 cm Aurea Connell height E&M 68 [in_i] Hailey Marvin " height in centimeters E&M 172.72 cm Yajair a Marvin " oxygen saturation, oximetry 98 % Yaja rafael Marvin " method used to obtain blood pressure automatic Hailey Marvin " Blood Pressure Position 01 sitting Yajai ra Marvin " blood pressure, site #1 left arm Hailey Marvin " blood pressure, diastolic 79 mm[Hg] Yajair a Marvin " blood pressure, systolic 133 mm[Hg] Hailey Marvin " pulse rate 93 /min Hailey Marvin " temperature site oral Hailey Marvin " temperature E&M 98.2 [degF] Hailey Marvin " weight E&M 142.13 lbs. 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 - Internal - Mammogram - Screening RESULTS Date Observation Value Provider Reference Range Interpretati on Location 2019NCoV (COVID-19) SARS cor onavirus 2 RNA ([facility]) in Respiratory specimen by SORAYA with probe detection (Other Lab) Not Detected [facility] Not Detected gamma glutamyl transferase, serum 11 1/L [facility] 0-60 hepatitis B surface antigen Negative [facility] Negative " hepatitis C antibody, serum <0.1 [facility] 0.0-0.9 " HIV-CMIA (Chemiluminescent Microparticle Immuno Assay) Non Reactive [facility] Non Reactive " rapid plasma reagin antibody, serum Non Reactive [facility] Non Reactive " thyroid stimulating hormone, serum 1.280 u[iU]/mL [facility] 0.450-4.500 " LDL cholesterol, serum 188 mg/dL [facility] 0-99 High " very low density lipoproteins 55 mg/dL [facility] 5-40 High " HDL cholesterol, serum 59 mg/dL [facility] >39 " triglyceride, serum, fasting 273 mg/dL [facility] 0-149 High " cholesterol, serum 302 mg/dL [facility] 100-199 High " alanine aminotransferase (SGPT), serum 12 1/L [facility] 0-32 " aspartate aminotransferase (SGOT), serum 16 1/L [facility] 0-40 " alkaline phosphatase, serum 202 1/L [facility] 39-117 H igh " bilirubin, serum, total <0.2 mg/dL [facility] 0.0-1.2 " albumin/globulin ratio, serum 1.6 [facility] 1.2-2.2 " globulin, serum 2.9 [facility] 1.5-4.5 " albumin, serum 4.7 g/dL [facility] 3.8-4.9 " protein, total, serum 7.6 g/dL [facility] 6.0-8.5 " calcium, serum 10.6 mg/dL [facility] 8.7-10.2 High " carbon dioxide, venous blood 24 mmol/L [facility] 20-29 " chloride, serum 99 mmol/L [facility] 96-106 " potassium, serum 4.2 mmol/L [facility] 3.5-5.2 " sodium, serum 142 mmol/L [facility] 134-144 " urea nitrogen/creatinine ratio, serum 14 [facility] 9 -23 " eGFR if 112 mL/min/((173/100).m2) [facility] >59 " Estimated Glomerular Filtration Rate (calc) 97 m L/min/((173/100).m2) [facility] >59 " creatinine, serum 0.72 mg/dL [facility] 0.57-1.00 " urea nitrogen, blood 10 mg/dL [facility] 6-24 " blood glucose, random 80 mg/dL [facility] 65-99 " immature granulocytes, percentage of total cells, bloo d 0 % [facility] Not Estab. " basophil count, absolute 0.0 x10E3/uL [facility] 0.0-0.2 " Eosinophil Absolute Count 0.2 X10E3/UL [facility] 0.0-0.4 " monocyte count, blood, automated 0.6 X10E3/UL [facility] 0.1 -0.9 " lymphocyte count, blood, automated 2.9 X10E3/UL [facility] 0 .7-3.1 " Absolute Neutrophils 4.0 X10E3/UL [facility] 1.4-7.0 " basophils as percent of blood leukocytes 1 % [facility] Not Estab. " eosinophils as percent of blood leukocytes 3 % [facility] Not Estab. " monocytes as percent of blood leukocytes 8 % [facility] Not Estab. " lymphocytes as percent of blood leukocytes 37 % [facility] Not Estab. " neutrophils as percent of blood leukocytes 51 % [facility] Not Estab. " platelet count 264 X10E3/UL [facility] 150-450 " red blood cell distribution width 14.4 % [facility] 11.7- 15.4 " mean corpuscular hemoglobin concentration, RBC 35.2 G/DL [facility] 31.5-35.7 " mean corpuscular hemoglobin, RBC 32.8 pg [facility] 26.6-3 3.0 " mean corpuscular volume, RBC 93 fL [facility] 79-97 " hematocrit, blood 38.3 % [facility] 34.0-46.6 " hemoglobin, blood 13.5 g/dL [facility] 11.1-15.9 " erythrocyte (RBC) count 4.11 X10E6/UL [facility] 3.77-5.28 " leukocyte count, blood 7.7 X10E3/UL [facility] 3.4-10.8 hemoglobin A1C, blood, as % of total hemoglobin 5.2 % [facility] " blood glucose, random 78 mg/dL [facility] 2019NCoV (COVID-19) SARS cor onavirus 2 RNA ([facility]) in Respiratory specimen by SORAYA with probe detection (Other Lab) Not Detected [facility] Not Detected Neisseria gonorrhoeae DNA probe Negative [facility] Negati ve " chlamydia DNA probe Negative [facility] Negative hepatitis A antibody, total Negative [facility] Negative " HIV-CMIA (Chemiluminescent Microparticle Immuno Assay) Non Reactive [facility] Non Reactive " rapid plasma reagin antibody, serum Non Reactive [facility] Non Reactive " alanine aminotransferase (SGPT), serum 9 1/L [facility] 0-32 " aspartate aminotransferase (SGOT), serum 11 1/L [facility] 0-40 " alkaline phosphatase, serum 146 1/L [facility] 39-117 H igh " bilirubin, serum, total 0.3 mg/dL [facility] 0.0-1.2 " albumin/globulin ratio, serum 1.9 [facility] 1.2-2.2 " globulin, serum 2.4 [facility] 1.5-4.5 " albumin, serum 4.6 g/dL [facility] 3.5-5.5 " protein, total, serum 7.0 g/dL [facility] 6.0-8.5 " calcium, serum 9.9 mg/dL [facility] 8.7-10.2 " carbon dioxide, venous blood 28 mmol/L [facility] 20-29 " chloride, serum 103 mmol/L [facility] 96-106 " potassium, serum 4.4 mmol/L [facility] 3.5-5.2 " sodium, serum 143 mmol/L [facility] 134-144 " urea nitrogen/creatinine ratio, serum 15 [facility] 9 -23 " eGFR if 107 mL/min/((173/100).m2) [facility] >59 " Estimated Glomerular Filtration Rate (calc) 93 m L/min/((173/100).m2) [facility] >59 " creatinine, serum 0.75 mg/dL [facility] 0.57-1.00 " urea nitrogen, blood 11 mg/dL [facility] 6-24 " blood glucose, random 99 mg/dL [facility] 65-99 " immature granulocytes, percentage of total cells, bloo d 0 % [facility] Not Estab. " basophil count, absolute 0.0 x10E3/uL [facility] 0.0-0.2 " Eosinophil Absolute Count 0.2 X10E3/UL [facility] 0.0-0.4 " monocyte count, blood, automated 0.5 X10E3/UL [facility] 0.1 -0.9 " lymphocyte count, blood, automated 2.7 X10E3/UL [facility] 0 .7-3.1 " Absolute Neutrophils 3.9 X10E3/UL [facility] 1.4-7.0 " basophils as percent of blood leukocytes 0 % [facility] Not Estab. " eosinophils as percent of blood leukocytes 2 % [facility] Not Estab. " monocytes as percent of blood leukocytes 7 % [facility] Not Estab. " lymphocytes as percent of blood leukocytes 37 % [facility] Not Estab. " neutrophils as percent of blood leukocytes 54 % [facility] Not Estab. " platelet count 238 X10E3/UL [facility] 150-450 " red blood cell distribution width 13.7 % [facility] 12.3- 15.4 " mean corpuscular hemoglobin concentration, RBC 33.4 G/DL [facility] 31.5-35.7 " mean corpuscular hemoglobin, RBC 29.7 pg [facility] 26.6-3 3.0 " mean corpuscular volume, RBC 89 fL [facility] 79-97 " hematocrit, blood 35.9 % [facility] 34.0-46.6 " hemoglobin, blood 12.0 g/dL [facility] 11.1-15.9 " erythrocyte (RBC) count 4.04 X10E6/UL [facility] 3.77-5.28 " leukocyte count, blood 7.3 X10E3/UL [facility] 3.4-10.8 " hepatitis C antibody, serum <0.1 [facility] 0.0-0.9 " hepatitis B surface antibody Reactive [facility] " hepatitis B core antibody, total Negative [facility] Negati ve " hepatitis B surface antigen Negative [facility] Negative lithium, blood 0.8 mmol/L [facility] 0.6-1.2 " erythrocyte sedimentation rate 2 mm/h [facility] 0-32 " thyroid stimulating hormone, serum 2.590 u[iU]/mL [facility] 0.450-4.500 " alanine aminotransferase (SGPT), serum 15 1/L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 situation, oriented to reality Danna Hunter " hallucinations No Danna Hunter " thought content (mental status exam) (E&M) lucnita Hunter " mental status assessment, process able to abstra ct, goal-directed, logical Danna Hunter " mental status assessment, sensorium alert, atten tive, clear Danna Hunter " affect (mental status exam) congruent, n ormal intensity, normal range, anxious Danna Hunter " mood (mental status exam) anxious, depressed Chr mignon Hunter " mental status assessment, speech activit y normal flow, normal pace, normal pressure, normal rate, normal tone, normal volume, spontaneous Danna Hunter " mental status assessment, motor activity normal gait, normal posture, tremors Danna Hunter " behavior (mental status exam) appropriat e, candid, cooperative, good eye contact, polite, responsive, tearful Danna Hunter " mental appearance (mental status exam) a dequate hygiene, appropriate dress, looks like stated age, neat Danna Hunter " anxiety worry a lot, sleep d isturbance, restlessness, irritability, many physical complaints, panic attacks, muscle tension Danan Hunter mood (mental status exam) anxious, depressed Ofelia Boudreaux " mental status assessment, judgment good Radha Boudreaux " insight (mental status exam) good Ofelia Boudreaux " Mental Status Exam: intelligence adequat e fund of information, intact memory processes, oriented to person, oriented to place, oriented to time, oriented to situation, oriented to reality Radha Boudreaux" thought content (mental status exam) (E&M) lucid Radha Boudreaux " mental status assessment, process able to abstra ct, goal-directed, logical Radha Boudreaux " mental status assessment, sensorium alert, atten tive, clear Radha Boudreaux " affect (mental status exam) congruent, n ormal intensity, normal range, anxious Radha Boudreaux " mental status assessment, speech activit y normal flow, normal pace, normal pressure, normal rate, normal tone, normal volume, spontaneous Radha Boudreaux " mental status assessment, motor activity normal gait, normal posture Radha Boudreaux " behavior (mental status exam) appropriat e, candid, cooperative, good eye contact, polite, responsive Radha Boudreaux " mental appearance (mental status exam) a dequate hygiene, appropriate dress, looks like stated age, neat Radha Boudreaux " delusion No Radhascott Boudreaux " hallucinations No Radha Boudreaux assessment of judgment and insight E&M intact [facility] " Generalized Anxiety Disorder Questionnaire - Que stion 2 0 Olivia Colindres " Generalized Anxiety Disorder Questionnaire - Que stion 1 0 Olivia Colindres Generalized Anxiety Disorder Questionnaire - Que stion 6 3 [facility]ja " Generalized Anxiety Disorder Questionnaire - Que stion 5 3 [facility] Shu " Generalized Anxiety Disorder Questionnaire - Que stion 7 0 [facility] " Generalized Anxiety Disorder Questionnaire - Que stion 4 3 [facility] " Generalized Anxiety Disorder Questionnaire - Que stion 3 3 [facility] " assessment of mood and affect E&M Appears anxiou s [facility] " mental status examination: orientation E &M oriented to time, place, and person [facility] " assessment of judgment and insight E&M intact [facility] " Generalized Anxiety Disorder Questionnaire - Que stion 2 3 [facility] " Generalized Anxiety Disorder Questionnaire - Que stion 1 3 [facility] assessment of judgment and insight E&M intact Sherrie Newsome " mental status examination: orientation E &M oriented to time, place, and person Sherrie Newsome " assessment of mood and affect E&M no depression, anxiety, or agitation Sherrie Newsome " Generalized Anxiety Disorder Questionnaire - Que stion 2 0 Aurea Connell " Generalized Anxiety Disorder Questionnaire - Que stion 1 0 Aurea Connell Generalized Anxiety Disorder Questionnaire - Que stion 2 0 Hailey Yon " Generalized Anxiety Disorder Questionnaire - Que stion 1 0 Hailey Marvin MEDICAL EQUIPMENT No Information Available FAMILY HISTORY No Information Available INSURANCE PROVIDERS Payer name Policy type / Coverage type Covered part y ID Sliding Fee - Cat 1 [employer] insurance [employer] [id number] ADVANCE DIRECTIVES No Information Available TREATMENT PLAN Date Name 2018 Novel Coronavirus (CoVI D-19), SORAYA GGT HBsAg Screen HCV Antibody RPR, Rfx Qn RPR/Confirm TP HIV 1/2 ANTIGEN/ANTIBODY, FO URTH GENERATION W/RFL TSH Lipid Panel Comp. Metabolic Panel (14) CBC With Differential/Platel et 2018 Novel Coronavirus (CoVI D-19), SORAYA Hepatitis Super Panel RPR, Rfx Qn RPR/Confirm TP Chlamydia/GC Amplification ( Urine) HIV 1/2 ANTIGEN/ANTIBODY, FO URTH GENERATION W/RFL CBC With Differential/Platel et Hep A Ab, Total Comp. Metabolic Panel (14) Sedimentation Rate[place] Urinalysis (w/micro), Comple te [place] ([place]), Serum TSH Rfx on Abnormal to Free T4 Comp. Metabolic Panel (14) CBC With Differential/Platel et - - - Reason for referral: colonoscopy Max # of visits: Gold Card Y/N? NOTE: need labs - - - Est Patient Exp Problem - 99 213 Est Patient Exp Problem - 99 213 Est Patient Exp Problem - 99 213 Est Patient Exp Problem - 99 213 HEMOGLOBIN A1C - In House Finger Stick Glucose Est Patient Well Exam (40 - 64 Yrs) - 14119 Est Patient Exp Problem - 99 213 Est Patient Exp Problem - 99 213 Est Patient Exp Problem - 99 213 Est Patient Exp Problem - 99 213 Health Education/Supportive Counseling Health Education/Supportive Counseling Est Patient Exp Problem - 99 213 Est Patient Exp Problem - 99 213 Diagnostic evaluation with tonya weiss - 10051 IB Assessment - Consulta nt Diagnostic evaluation (no me dical) - 03884 Integrated Behavioral Health Assessment (IBH) Est Patient Exp Problem - 99 213 Behavioral Health - Psychiat ry Integrated Behavioral Health Assessment (IBH) Est Patient Exp Problem - 99 213 Prescription Assistance (Non -HIV) Dental - Internal Est Patient Exp Problem - 99 213 Behavioral Health - Psychiat ry New Patient Detailed - 28394 HISTORY OF PROCEDURES Procedure Date Procedure Name Provider Procedure Notes Status HEMOGLOBIN A1C - In House Tommy Cottrell completed Finger Stick Glucose Tommy Cottrell comp leted Health Education/Supportive Counseling Fly cunha completed Health Education/Supportive Counseling [facility] Provider completed Diagnostic evaluation with medical - 47188 Danna bolanos completed IB Assessment - Bottom Buffer Radha Boudreaux completed Diagnostic evaluation (no medical) - 50007 Radha catherine completed GOALS No Information Available HEALTH CONCERNS No Information Available
--- OUTSIDE RECORDS SUMMARY | 2020-04-05 17:49 | XMS REPORT | Continuity of Care Document ---
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 2020-02-04 00:00:00 2020-02-04 00:00:00 Office Visit Status, Fax [facility] LC Encounter/[id number] [facility] 2020-02-04 00:00:00 2020-02-04 00:00:00 Office Visit F Danna bolanos Norma [facility] Encounter/[id number] Leg[facility] 2020-02-04 00:00:00 2020-02-04 00:00:00 Office Visit Danna Hunter [facility] Encounter/[id number] [facility] 2020-02-02 00:00:00 2020-02-02 00:00:00 Office Visit Nicolasa Arboleda Chukwuemeka Christian Vazquez, Shantelle M [facility] LC Encounter/[id number] [facility] 2020-02-02 00:00:00 2020-02-02 00:00:00 Office Visit Alesha Mendoza [facility] Encounter/[id number] Leg[facility] 2020-01-29 00:00:00 2020-01-29 00:00:00 Office Visit Tommy Elizabeth Chukwuemeka Christian [facility] Encounter/[id number] [facility] 2020-01-29 00:00:00 2020-01-29 00:00:00 Office Visit Alesha eMndoza [facility] Encounter/[id number] [facility]ac [facility] 2020-01-29 00:00:00 2020-01-29 00:00:00 Office Visit Alesha Mendoza [facility] Encounter/[id number] Legac y [facility] Health 2020-01-29 00:00:00 2020-01-29 00:00:00 Office Visit Alesha Mendoza [facility] Encounter/[id number] Leg y [facility] 2020-01-29 00:00:00 2020-01-29 00:00:00 Office Visit Glendy mello, Tommy Guaman, Bryanna Kim, Ethel Singh, Victorina Owens [facility] Encounter/[id number] [facility] 2020-01-23 00:00:00 2020-01-23 00:00:00 Office Visit Danna Hunter [facility] Encounter/[id number] [facility] 2020-01-23 00:00:00 2020-01-23 00:00:00 Office Visit Danna Paniagua Norma [facility] Encounter/[id number] [facility] 2020-01-13 00:00:00 2020-01-13 00:00:00 Office Visit Danna Paniagua Norma Campbell, Mary N [facility][id number] [facility] 2020-01-12 00:00:00 2020-01-12 00:00:00 Office Visit Danna Paniagua Norma Romero, Jose E [facility] Encounter/[id number] [facility] 2020-01-12 00:00:00 2020-01-12 00:00:00 Office Visit Danna Hunter [facility] Encounter/[id number] [facility] 2020-01-09 00:00:00 2020-01-09 00:00:00 Office Visit Danna Paniagua Monserrat [facility] En[facility]/[id number] [facility] 2019-12-02 00:00:00 2019-12-02 00:00:00 Office Visit Danni Wong Darin D [facility] Encounter/[id number] Leg [facility] 2019-12-01 00:00:00 2019-12-01 00:00:00 Office Visit Ilda Pearson, Minh Melendrez, Celio Monte, Porsha Skaggs, Kelsey Waddell, Chasidy Enriquez, Cliff Espino [facility] Encounter/[id number] [facility] 2019-11-13 00:00:00 2019-11-13 00:00:00 Office Visit Danna Hunter [facility] Encounter/[id number] [facility] 2019-11-12 00:00:00 2019-11-12 00:00:00 Office Visit Dominique Curtis [facility] Encounter/[id number] [facility] 2019-11-10 00:00:00 2019-11-10 00:00:00 Office Visit Danna Hunter [facility] Encounter/[id number] [facility] 2019-11-10 00:00:00 2019-11-10 00:00:00 Office Visit Momo shay, Ny Valdivia, Lary Cazares, Wanda Curtis, Ilda Smiley, Shana Salas, Glenda Young, Trina Chicas, Elicia Castaneda [facility] Encounter/[id number] [facility] 2019-11-06 00:00:00 2019-11-06 00:00:00 Office Visit Dominique Curtis [facility] Encounter/[id number] [facility] 2019-11-06 00:00:00 2019-11-06 00:00:00 Office Visit Dominique Curtis [facility] Encounter/[id number] [facility] 2019-11-06 00:00:00 2019-11-06 00:00:00 Office Visit Ilda Pearson Jose A [facility] Encounter/[id number] [facility] 2019-10-17 00:00:00 2019-10-17 00:00:00 Emergency REID, BOI [facility] [id number] Tito Rastafarian 2019-10-14 00:00:00 2019-10-14 00:00:00 Office Visit Danna Paniagua, JaimeeMayelin Xie Jose E [facility] LC Encounter/[id number] [facility] 2019-10-13 00:00:00 2019-10-13 00:00:00 Office Visit Danna Paniagua Leticia LC LC Encounter/[id number] [facility] 2019-10-13 00:00:00 2019-10-13 00:00:00 Office Visit Danna Paniagua Leticia [facility] LC Encounter/[id number] [facility] 2019-09-29 00:00:00 2019-09-29 00:00:00 Office Visit Danna Paniagua Maria [facility] LC Encounter/[id number] [facility] 2019-07-30 00:00:00 2019-07-30 00:00:00 Office Visit Danna Hunter [facility] LC Encounter/[id number] [facility] 2019-07-30 00:00:00 2019-07-30 00:00:00 Office Visit Danna Paniagua Jazmin [facility] LC Encounter/[id number] [facility] 2019-07-21 00:00:00 2019-07-21 00:00:00 Office Visit Danna Hunter LC Encounter/[id number] [facility] 2019-07-21 00:00:00 2019-07-21 00:00:00 Office Visit Danna Hunter LC Encounter/[id number] [facility] 2019-07-18 00:00:00 2019-07-18 00:00:00 Office Visit Danna Paniagua Norma Romero, Jose E [facility] LC Encounter/[id number] [facility] 2019-06-05 00:00:00 2019-06-05 00:00:00 Office Visit Danna Hunter LC Encounter/[id number] [facility] 2019-05-05 00:00:00 2019-05-05 00:00:00 Office Visit Danna Hunter [facility] LC Encounter/[id number] [facility] 2019-05-05 00:00:00 2019-05-05 00:00:00 Office Visit Danna Paniagua Emmanuel [facility] LC Encounter/[id number] [facility] 2019-04-15 00:00:00 2019-04-15 00:00:00 Office Visit Danna Paniagua Norma Pardo, Monserrat [facility] LC Encounter/[id number] [facility] 2019-03-26 00:00:00 2019-03-26 00:00:00 [facility] Visit [facility] Fly Zimmerman LC Encounter/[id number] [facility] 2019-03-13 00:00:00 2019-03-13 00:00:00 Office Visit Danna Hunter [facility] LC Encounter/[id number] [facility] 2019-03-12 00:00:00 2019-03-12 00:00:00 Office Visit Danna Paniagua Norma [facility] LC Encounter/[id number] [facility] 2019-03-05 00:00:00 2019-03-05 00:00:00 Office Visit Girma No LC Encounter/[id number] [facility] 2019-03-05 00:00:00 2019-03-05 00:00:00 Office Visit Girma No LC Encounter/[id number] [facility] 2019-03-05 00:00:00 2019-03-05 00:00:00 Office Visit Fly Vee LC Encounter/[id number] [facility] 2019-03-05 00:00:00 2019-03-05 00:00:00 Office Visit Patric Peralta Kendra [facility] LC Encounter/[id number] [facility] 2019-03-05 00:00:00 2019-03-05 00:00:00 [facility] Visit [facility] Fly Zimmerman [facility] Encounter/[id number] [facility] 2019-02-06 00:00:00 2019-02-06 00:00:00 Office Visit Trinity Danna bolanosMayelin Maggie LC [facility][id number] [facility] 00:00:00 2019-01-29 00:00:00 Office Visit Danna Hunter [facility] Encounter/[id number] [facility] 2019-01-29 00:00:00 2019-01-29 00:00:00 Office Visit Trinity Danna bolanos Dalila LC [facility] Encounter/[id number] [facility] 2019-01-29 00:00:00 2019-01-29 00:00:00 Office Visit Status, Fax LC [facility] Encounter/[id number] [facility] 2019-01-08 00:00:00 2019-01-08 00:00:00 Office Visit Danna Hunter [facility] Encounter/[id number] [facility] 2019-01-02 00:00:00 2019-01-02 00:00:00 Office Visit Danna Hunter LC Encounter/[id number] [facility] 2018-12-30 00:00:00 2018-12-30 00:00:00 Office Visit Danna Hunter [facility] Encounter/[id number] [facility] 2018-12-05 00:00:00 2018-12-05 00:00:00 Office Visit Status, Fax LC [facility] Encounter/[id number] [facility] 2018-11-28 00:00:00 2018-11-28 00:00:00 Office Visit Tommy Elizabeth MedAdherMadelyn davis LC [facility] Encounter/[id number] [facility] 2018-10-29 00:00:00 2018-10-29 00:00:00 Office Visit Danna Hunter [facility] Encounter/[id number] [facility] 2018-10-29 00:00:00 2018-10-29 00:00:00 Office Visit Tommy ElizabethAdherence Madelyn LAURA LC Encounter/[id number] [facility] 2018-10-07 00:00:00 2018-10-07 00:00:00 Office Visit Danna Hunter LC Encounter/[id number] [facility] 2018-10-07 00:00:00 2018-10-07 00:00:00 Office Visit Danna Paniagua Norma [facility] LC Encounter/[id number] [facility] 2018-09-24 00:00:00 2018-09-24 00:00:00 Office Visit Danna Paniagua Christine LC LC Encounter/[id number] [facility] 2018-08-28 00:00:00 2018-08-28 00:00:00 Office Visit Danna Hunter LC Encounter/[id number] [facility] 2018-08-28 00:00:00 2018-08-28 00:00:00 Office Visit Danna Hunter LC Encounter/[id number] [facility] 2018-08-28 00:00:00 2018-08-28 00:00:00 Office Visit Danna Hunter LC Encounter/[id number] [facility] 2018-08-28 00:00:00 2018-08-28 00:00:00 Office Visit Danna Hunter LC Encounter/[id number] [facility] 2018-08-28 00:00:00 2018-08-28 00:00:00 Office Visit Danna Hunter LC Encounter/[id number] [facility] 2018-08-28 00:00:00 2018-08-28 00:00:00 Office Visit Danna Hunter LC Encounter/[id number] [facility] 2018-08-28 00:00:00 2018-08-28 00:00:00 Office Visit Danna Paniagua Norma LC LC Encounter/[id number] [facility] 2018-07-25 00:00:00 2018-07-25 00:00:00 Office Visit Ofelia Boudreaux [facility] LC Encounter/[id number] [facility] 2018-07-25 00:00:00 2018-07-25 00:00:00 Office Visit Madelyn Royal [facility] LC Encounter/[id number] [facility] 2018-07-24 00:00:00 2018-07-24 00:00:00 Office Visit Madelyn Royal [facility] LC Encounter/[id number] [facility] 2018-07-10 00:00:00 2018-07-10 00:00:00 Office Visit Marivel Jackson [facility] LC Encounter/[id number] [facility] 2018-07-10 00:00:00 2018-07-10 00:00:00 Office Visit Marivel Jackson [facility] Encounter/[id number] [facility] 2018-07-10 00:00:00 2018-07-10 00:00:00 Office Visit Miryam Paniagua Michelle Shuja, Mahim Rodriguez, Nelly [facility] LC Encounter/[id number] [facility] 2018-06-27 00:00:00 2018-06-27 00:00:00 Office Visit Micah Cat [facility] LC Encounter/[id number] [facility] 2018-06-27 00:00:00 2018-06-27 00:00:00 Office Visit Tommy Elizabeth Mahim [facility] LC Encounter/[id number] [facility] 2018-05-26 00:00:00 2018-05-26 00:00:00 Office Visit Marivel Jackson [facility] LC Encounter/[id number] [facility] 2018-05-24 00:00:00 2018-05-24 00:00:00 Office Visit Sylvia Cottrell [facility] LC Encounter/[id number] [facility] 2018-05-24 00:00:00 2018-05-24 00:00:00 Office Visit Status, Fax LCH [facility] Encounter/[id number] [facility] 2018-05-24 00:00:00 2018-05-24 00:00:00 Office Visit Status, Fax LCH [facility] Encounter/[id number] [facility] 2018-05-24 00:00:00 2018-05-24 00:00:00 Office Visit Status, Fax LCH [facility] Encounter/[id number] [facility] 2018-05-24 00:00:00 2018-05-24 00:00:00 Office Visit Status, Fax LCH [facility] Encounter/[id number] [facility] 2018-05-24 00:00:00 2018-05-24 00:00:00 Office Visit Status, Fax LCH [facility] Encounter/[id number] [facility] 2018-05-24 00:00:00 2018-05-24 00:00:00 Office Visit Status, Fax LCH [facility] Encounter/[id number] [facility] 2018-05-24 00:00:00 2018-05-24 00:00:00 Office Visit JaynasanamElijah gongsylvia castaneda LCH [facility] Encounter/[id number] [facility] 2018-05-24 00:00:00 2018-05-24 00:00:00 Office Visit Marivel Jackson tonya L[facility] Encounter/[id number] [facility] 2018-05-24 00:00:00 2018-05-24 00:00:00 Office Visit Tommy Elizabeth, Lucretia Guaman, Bryanna Monte, Porsha Nye, Ursula Ruano, Marielos Jackson, Dmitriy Zuluaga, Thierry Hanna, Kathe Garduno LC [facility] Encounter/[id number] [facility] 2018-02-18 00:00:00 2018-02-18 00:00:00 Office Visit Christy Yan L[facility] Encounter/[id number] [facility] 2018-02-11 00:00:00 2018-02-11 00:00:00 Office Visit Madelyn RoyalH [facility] Encounter/[id number] [facility] 2018-02-11 00:00:00 2018-02-11 00:00:00 Office Visit Madelyn Royal [facility] Encounter/[id number] [facility] 2018-01-15 13:30:00 2018-01-15 13:30:00 Appointment; SRAVANI ZAMARRIPA M.D. KORTHAUER, KEN, M.D. [facility] Orthopedic Surgery [facility] [id number] [facility] 2018-01-10 00:00:00 2018-01-10 00:00:00 Office Visit Helen Manzano [facility] Encounter/[id number] [facility] 2017-12-06 00:00:00 2017-12-06 00:00:00 Office Visit Zackary Reveles [facility] Encounter/[id number] [facility] 2017-11-26 00:00:00 2017-11-26 00:00:00 Office Visit Antoine Stout [facility] Encounter/[id number] [facility] 2017-11-26 00:00:00 2017-11-26 00:00:00 Office Visit Antoine Stout [facility] Encounter/[id number] [facility] 2017-11-22 00:00:00 2017-11-22 00:00:00 Office Visit Antoine Stout [facility] Encounter/[id number] [facility] 2017-11-20 00:00:00 2017-11-20 00:00:00 Office Visit Sherrie Lau Norma [facility] Encounter/[id number] [facility] 2017-11-20 00:00:00 2017-11-20 00:00:00 Office Visit Karlos Newsome [facility] Encounter/[id number] [facility] 2017-11-20 00:00:00 2017-11-20 00:00:00 Office Visit Sherrie Lau, Lucretia Finley, Aurea Vargas Guillermo Rodriguez, Miriam [facility] Encounter/[id number] [facility] 2017-11-09 00:00:00 2017-11-09 00:00:00 Office Visit Sa gilberto Louie [facility] Encounter/[id number] [facility] 2017-11-09 00:00:00 2017-11-09 00:00:00 Office Visit Zackary Reveles [facility] Encounter/[id number] [facility] 2017-11-07 00:00:00 2017-11-07 00:00:00 Office Visit Zackary Woo Sara [facility] Encounter/[id number] [facility] 2017-11-07 00:00:00 2017-11-07 00:00:00 Office Visit Zackary Reveles [facility] Encounter/[id number] [facility] 2017-11-07 00:00:00 2017-11-07 00:00:00 Office Visit Zackary Reveles [facility] Encounter/[id number] [facility] 2017-11-07 00:00:00 2017-11-07 00:00:00 Office Visit Zackary Woo Yajaira Norris, Brittany Medina, Dennys [facility] Encounter/[id number] [facility] 2017-10-22 00:00:00 2017-10-22 00:00:00 Office Visit Zackary Reveles [facility] Encounter/[id number] [facility] Results Test Description Test Time Test Comments Results Result Comments Source 2019NCoV (COVID-19) SARS coronavirus 2 R NA (Presence) in Respiratory specimen by SORAYA with probe detection (Other Lab) 2020-02-18 14:42:00 Test Item 2019NCoV (COVID-19) SARS coronavirus 2 R NA (Presence) in Respiratory specimen by SORAYA with probe detection (Other Lab) (test code = 38243-0) Not Detected Not Detected [facility], [id number] 16:32:00* Test Item Value Reference Range Interpretation Comments gamma glutamyl transferase, serum (test code = 25) 11 1/L 0-6 0 [facility] Centerhepat[facility] B surface [id number] 16:44:00* Test Item Value Reference Range Interpretation Comments hepatitis B surface antigen (test code = 79) Negative Negative [facility] antibody, [id number] 16:44:00* Test Item Value Reference Range Interpretation Comments hepatitis C antibody, serum (test code = 5199-5) <0.1 0.0-0 .9 [facility] (Chemiluminescent Microparticle Immuno Assay) 2020-01-29 16:44:00* Test Item Value Reference Range Interpretation Comments HIV-CMIA (Chemiluminescent Microparticle Immuno Assay) (test code = 141574) Non Reactive Non Reactive [facility] Center[facility]id plasma reagin antibody, [id number] 16:44:00* Test Item Value Reference Range Interpretation Comments rapid plasma reagin antibody, serum (test code = 5291-0) Non Reactive Non Reactive [facility] Centerthyroid stimulating hormone, [id number] 16:44:00* Test Item Value Reference Range Interpretation Comments thyroid stimulating hormone, serum (test code = 3016-3) 1.28 0 u[iU]/mL 0.450-4.500 [facility] CenterLDL cholesterol, [id number] 16:44:00* Test Item Value Reference Range Interpretation Comments LDL cholesterol, serum (test code = 2089-1) 188 mg/dL 0-99 [facility] low density [id number] 16:44:00* Test Item Value Reference Range Interpretation Comments very low density lipoproteins (test code = 2091-7) 55 mg/dL 5-4 0 H [facility] CenterHDL cholesterol, [id number] 16:44:00* Test Item Value Reference Range Interpretation Comments HDL cholesterol, serum (test code = 2085-9) 59 mg/dL >39 [facility], serum, [id number] 16:44:00* Test Item Value Reference Range Interpretation Comments triglyceride, serum, fasting (test code = 2571-8) 273 mg/dL 0-14 9 [facility] [facility] [id number] 16:44:00* Test Item Value Reference Range Interpretation Comments cholesterol, serum (test code = 2093-3) 302 mg/dL 100-199 H [facility]eralanine aminotransferase (SGPT), [id number] 16:44:00 * Test Item Value Reference Range Interpretation Comments alanine aminotransferase (SGPT), serum (test code = 1742-6) 12 1/L 0-32 [facility] Centeraspartate aminotransferase (SGOT), [id number] 16:44:00* Test Item Value Reference Range Interpretation Comments aspartate aminotransferase (SGOT), serum (test code = 1920-8) 16 1/ L 0-40 [facility] Centeralkaline phosphatase, [id number] 16:44:00* Test Item Value Reference Range Interpretation Comments alkaline phosphatase, serum (test code = 1783-0) 202 1/L 39-11 7 H [facility] Centerbilirubin, serum, [id number] 16:44:00* Test Item Value Reference Range Interpretation Comments bilirubin, serum, total (test code = 1975-2) <0.2 mg/dL 0.0-1.2 [facility] Healthalbumin/globulin ratio, [id number] 16:44:00* Test Item Value Reference Range Interpretation Comments albumin/globulin ratio, serum (test code = 1759-0) 1.6 1.2 -2.2 [facility] Healthglobulin, [id number] 16:44:00* Test Item Value Reference Range Interpretation Comments globulin, serum (test code = 2336-6) 2.9 1.5-4.5 [facility] Healthalbumin, [id number] 16:44:00* Test Item Value Reference Range Interpretation Comments albumin, serum (test code = 1751-7) 4.7 g/dL 3.8-4.9 [facility] Healthprotein, total, [id number] 16:44:00* Test Item Value Reference Range Interpretation Comments protein, total, serum (test code = 2885-2) 7.6 g/dL 6.0-8.5 [facility] Healthcalcium, [id number] 16:44:00* Test Item Value Reference Range Interpretation Comments calcium, serum (test code = 2000-8) 10.6 mg/dL 8.7-10.2 H [facility]ercarbon dioxide, venous vrcyl2530-00-20 16:44:00* Test Item Value Reference Range Interpretation Comments carbon dioxide, venous blood (test code = 2027-1) 24 mmol/L 20-2 9 [facility] Healthchloride, [id number] 16:44:00* Test Item Value Reference Range Interpretation Comments chloride, serum (test code = 2075-0) 99 mmol/L 96-106 [facility] Healthpotassium, cwrzo1867-78-20 16:44:00* Test Item Value Reference Range Interpretation Comments potassium, serum (test code = 2823-3) 4.2 mmol/L 3.5-5.2 [facility]odium, [id number] 16:44:00* Test Item Value Reference Range Interpretation Comments sodium, serum (test code = 2951-2) 142 mmol/L 134-144 [facility] Centerurea nitrogen/creatinine ratio, [id number] 16:44:00 * Test Item Value Reference Range Interpretation Comments urea nitrogen/creatinine ratio, serum (test code = 3097-3) 14 9-23 [facility] CentereGFR if Ncvfkqun6387-75-13 16:44:00* Test Item Value Reference Range Interpretation Comments eGFR if (test code = 27409-7) 112 mL/min/((173/100 ).m2) >59 [facility] CenterEstimated Glomerular Filtration Rate (calc)2020-01-29 16:44:00* Test Item Value Reference Range Interpretation Comments Estimated Glomerular Filtration Rate (calc) (test code = 56290-5) 97 mL/min/((173/100).m2) >59 [facility] Centercreatinine, [id number] 16:44:00* Test Item Value Reference Range Interpretation Comments creatinine, serum (test code = 2160-0) 0.72 mg/dL 0.57-1.00 [facility] Centerurea nitrogen, [id number] 16:44:00* Test Item Value Reference Range Interpretation Comments urea nitrogen, blood (test code = 3094-0) 10 mg/dL 6-24 [facility] Centerblood glucose, [id number] 16:44:00* Test Item Value Reference Range Interpretation Comments blood glucose, random (test code = 2339-0) 80 mg/dL 65-99 [facility] Centerimmature granulocytes, percentage of total cells, blood 2020-01-29 16:44:00* Test Item Value Reference Range Interpretation Comments immature granulocytes, percentage of total cells, bloo d (test code = 84490-4) 0 % [facility] Centerbasophil count, [id number] 16:44:00* Test Item Value Reference Range Interpretation Comments basophil count, absolute (test code = 45097-4) 0.0 x10E3/uL 0.0-0.2 [facility] CenterEosinophil Absolute Yshau7633-40-57 16:44:00* Test Item Value Reference Range Interpretation Comments Eosinophil Absolute Count (test code = 53356-9) 0.2 X10E3/UL 0.0-0. 4 [facility] Centermonocyte count, blood, wbshoeyvc1968 16:44:00* Test Item Value Reference Range Interpretation Comments monocyte count, blood, automated (test code = 742-7) 0.6 X10E3/UL 0 .1-0.9 [facility] Centerlymphocyte count, blood, dwwvxnoej0386-15-34 16:44:00* Test Item Value Reference Range Interpretation Comments lymphocyte count, blood, automated (test code = 731-0) 2.9 X10E3/UL 0.7-3.1 [facility] CenterAbsolute Eswsneuydxe8912-22-63 16:44:00* Test Item Value Reference Range Interpretation Comments Absolute Neutrophils (test code = 80881-4) 4.0 X10E3/UL 1.4-7.0 [facility] Centerbasophils as percent of blood zmrdtbwlxh3030-27-82 16:44:00* Test Item Value Reference Range Interpretation Comments basophils as percent of blood leukocytes (test code = 707-0) 1 % [facility] Centereosinophils as percent of blood vlgzmtemts8364-52-40 16:44:00* Test Item Value Reference Range Interpretation Comments eosinophils as percent of blood leukocytes (test code = 713-8) 3 % [facility] Healthmonocytes as percent of blood hgplxwrtls6272-05-09 16:44:00* Test Item Value Reference Range Interpretation Comments monocytes as percent of blood leukocytes (test code = 5905-5) 8 % [facility] Centerlymphocytes as percent of blood xyqeygjqkf1545-38-44 16:44:00* Test Item Value Reference Range Interpretation Comments lymphocytes as percent of blood leukocytes (test code = 736-9) 37 % [facility] Centerneutrophils as percent of blood cebdvbzaux4647-80-59 16:44:00* Test Item Value Reference Range Interpretation Comments neutrophils as percent of blood leukocytes (test code = 770-8) 51 % [facility] Centerplatelet dtfgp0555-79-78 16:44:00* Test Item Value Reference Range Interpretation Comments platelet count (test code = 777-3) 264 X10E3/UL 150-450 [facility] Centerred blood cell distribution ahnfb5768-92-56 16:44:00* Test Item Value Reference Range Interpretation Comments red blood cell distribution width (test code = 788-0) 14.4 % 11.7-15.4 [facility] corpuscular hemoglobin concentration, [id number] 16:44:00* Test Item Value Reference Range Interpretation Comments mean corpuscular hemoglobin concentration, RBC (test code = 786-4) 35.2 G/DL 31.5-35.7 [facility] corpuscular hemoglobin, [id number] 16:44:00* Test Item Value Reference Range Interpretation Comments mean corpuscular hemoglobin, RBC (test code = 785-6) 32.8 pg 2 6.6-33.0 [facility] corpuscular volume, [id number] 16:44:00* Test Item Value Reference Range Interpretation Comments mean corpuscular volume, RBC (test code = 787-2) 93 fL 79-97 [facility] Centerhematocrit, ihfhx5529-57-64 16:44:00* Test Item Value Reference Range Interpretation Comments hematocrit, blood (test code = 4544-3) 38.3 % 34.0-46.6 [facility] Centerhemoglobin, [id number] 16:44:00* Test Item Value Reference Range Interpretation Comments hemoglobin, blood (test code = 718-7) 13.5 g/dL 11.1-15.9 [facility] Centererythrocyte (RBC) eaqjw5677-39-98 16:44:00* Test Item Value Reference Range Interpretation Comments erythrocyte (RBC) count (test code = 789-8) 4.11 X10E6/UL 3.77-5.28 [facility] Centerleukocyte count, vfmfb3583-04-29 16:44:00* Test Item Value Reference Range Interpretation Comments leukocyte count, blood (test code = 6690-2) 7.7 X10E3/UL 3.4-10.8 [facility] Centerhemoglobin A1C, blood, as % of total etnvpnrkdd0826-62-77 14:59:28* Test Item Value Reference Range Interpretation Comments hemoglobin A1C, blood, as % of total hemoglobin (test code = 4548-4 ) 5.2 % [facility] Centerblood glucose, nackab5653-22-57 14:59:28* Test Item Value Reference Range Interpretation Comments blood glucose, random (test code = 2339-0) 78 mg/dL [facility]2019NCoV (COVID-19) SARS coronavirus 2 RNA ([facility]) in Respiratory specimen by SORAYA with probe detection (Other Lab)2019-11-06 10:50:00 * Test Item Value Reference Range Interpretation Comments 2019NCoV (COVID-19) SARS coronavirus 2 R NA ([facility]) in Respiratory specimen by SORAYA with probe detection (Other Lab) (test code = 15670-2) Not Detected Not Detected [facility] 12 [id number] 16:58:32* Test Item Value Reference Range Interpretation Comments Ventricular rate (test code = 253) 77 Atrial rate (test code = 255) 77 LA interval (test code = 266) 158 QRSD interval (test code = 260) 94 QT interval (test code = 264) 382 QTC interval (test code = 265) 432 P axis 1 (test code = 267) 13 QRS axis 1 (test code = 268) 33 T wave axis (test code = 270) 49 EKG impression (test code = 273) Normal sinus rhythm-N ormal ECG-No previous ECGs available- [facility] ED Preliminary Interpretation - Not an [id number] 19:33:08Fran Reid MD 10/18/2019 1:42 [facility] ED Preliminary Interpretation - Not an OrderPerformed by: Fran Reid MDAuthorized by: Fran Reid MD ECG reviewed by ED Physician in the absence of a engineering and scientific programmer: yes Previous ECG: Previous ECG: UnavailableInterpretation: Interpretation: normal Rate: ECG rate: 77 bpm ECG rate assessment: normal Rhythm: Rhythm: sinus rhythm Ectopy: Ectopy: none QRS: QRS axis: Normal QRS intervals: NormalConduction: Conduction: normal ST segments: ST segments: NormalT waves: T waves: normal Comments: Pr: 158 msQtc: 432 ms [facility]rho[facility] soovb5676-01-32 13:40:00* Test Item Value Reference Range Interpretation Comments Neisseria gonorrhoeae DNA probe (test code = 46588-2) Negative Negative [facility] Centerchlamydia DNA [id number] 13:40:00* Test Item Value Reference Range Interpretation Comments chlamydia DNA probe (test code = 26162-2) Negative Negative [facility] Centerhepatitis A antibody, [id number] 13:02:00* Test Item Value Reference Range Interpretation Comments hepatitis A antibody, total (test code = 75) Negative Negative [facility] CenterHIV-CMIA (Chemiluminescent Microparticle Immuno Assay) 2019-03-05 13:02:00* Test Item Value Reference Range Interpretation Comments HIV-CMIA (Chemiluminescent Microparticle Immuno Assay) (test code = 305232) Non Reactive Non Reactive [facility] Centerrapid plasma reagin antibody, [id number] 13:02:00* Test Item Value Reference Range Interpretation Comments rapid plasma reagin antibody, serum (test code = 5291-0) Non Reactive Non Reactive [facility] Centeralanine aminotransferase (SGPT), [id number] 13:02:00 * Test Item Value Reference Range Interpretation Comments alanine aminotransferase (SGPT), serum (test code = 1742-6) 9 1/L 0-32 [facility] Centeraspartate aminotransferase (SGOT), [id number] 13:02:00* Test Item Value Reference Range Interpretation Comments aspartate aminotransferase (SGOT), serum (test code = 1920-8) 11 1/ L 0-40 [facility] Centeralkaline phosphatase, [id number] 13:02:00* Test Item Value Reference Range Interpretation Comments alkaline phosphatase, serum (test code = 1783-0) 146 1/L 39-11 7 H [facility] Healthbilirubin, serum, aqlno2017-12-53 13:02:00* Test Item Value Reference Range Interpretation Comments bilirubin, serum, total (test code = 1975-2) 0.3 mg/dL 0.0-1.2 [facility] Healthalbumin/globulin ratio, [id number] 13:02:00* Test Item Value Reference Range Interpretation Comments albumin/globulin ratio, serum (test code = 1759-0) 1.9 1.2 -2.2 [facility] Healthglobulin, [id number] 13:02:00* Test Item Value Reference Range Interpretation Comments globulin, serum (test code = 2336-6) 2.4 1.5-4.5 [facility] Healthalbumin, [id number] 13:02:00* Test Item Value Reference Range Interpretation Comments albumin, serum (test code = 1751-7) 4.6 g/dL 3.5-5.5 [facility] Healthprotein, total, [id number] 13:02:00* Test Item Value Reference Range Interpretation Comments protein, total, serum (test code = 2885-2) 7.0 g/dL 6.0-8.5 [facility] Healthcalcium, [id number] 13:02:00* Test Item Value Reference Range Interpretation Comments calcium, serum (test code = 2000-8) 9.9 mg/dL 8.7-10.2 [facility]ercarbon dioxide, venous hojac3043-53-14 13:02:00* Test Item Value Reference Range Interpretation Comments carbon dioxide, venous blood (test code = 2027-1) 28 mmol/L 20-2 9 [facility] Healthchloride, [id number] 13:02:00* Test Item Value Reference Range Interpretation Comments chloride, serum (test code = 2075-0) 103 mmol/L 96-106 [facility] Healthpotassium, [id number] 13:02:00* Test Item Value Reference Range Interpretation Comments potassium, serum (test code = 2823-3) 4.4 mmol/L 3.5-5.2 [facility] Centersodium, jgbsr5786-44-00 13:02:00* Test Item Value Reference Range Interpretation Comments sodium, serum (test code = 2951-2) 143 mmol/L 134-144 [facility] Centerurea nitrogen/creatinine ratio, [id number] 13:02:00 * Test Item Value Reference Range Interpretation Comments urea nitrogen/creatinine ratio, serum (test code = 3097-3) 15 - [facility] CentereGFR if Mpwjuypq9129-31-73 13:02:00* Test Item Value Reference Range Interpretation Comments eGFR if (test code = 76560-1) 107 mL/min/((173/100 ).m2) >59 [facility] CenterEstimated Glomerular Filtration Rate (calc)2019-03-05 13:02:00* Test Item Value Reference Range Interpretation Comments Estimated Glomerular Filtration Rate (calc) (test code = 48978-1) 93 mL/min/((173/100).m2) >59 [facility] Centercreatinine, [id number] 13:02:00* Test Item Value Reference Range Interpretation Comments creatinine, serum (test code = 2160-0) 0.75 mg/dL 0.57-1.00 [facility] Centerurea nitrogen, [id number] 13:02:00* Test Item Value Reference Range Interpretation Comments urea nitrogen, blood (test code = 3094-0) 11 mg/dL 6-24 [facility] Centerblood glucose, [id number] 13:02:00* Test Item Value Reference Range Interpretation Comments blood glucose, random (test code = 2339-0) 99 mg/dL 65-99 [facility] Centerimmature granulocytes, percentage of total cells, blood 2019-03-05 13:02:00* Test Item Value Reference Range Interpretation Comments immature granulocytes, percentage of total cells, bloo d (test code = 46562-4) 0 % [facility] Centerbasophil count, [id number] 13:02:00* Test Item Value Reference Range Interpretation Comments basophil count, absolute (test code = 14459-5) 0.0 x10E3/uL 0.0-0.2 [facility] CenterEosinophil Absolute [id number] 13:02:00* Test Item Value Reference Range Interpretation Comments Eosinophil Absolute Count (test code = 37435-5) 0.2 X10E3/UL 0.0-0. 4 [facility] Healthmonocyte count, blood, aclsldveu2882-52-85 13:02:00* Test Item Value Reference Range Interpretation Comments monocyte count, blood, automated (test code = 742-7) 0.5 X10E3/UL 0 .1-0.9 [facility] Centerlymphocyte count, blood, dqguxrrbo3448-40-75 13:02:00* Test Item Value Reference Range Interpretation Comments lymphocyte count, blood, automated (test code = 731-0) 2.7 X10E3/UL 0.7-3.1 [facility] CenterAbsolute Isijcyitdhd1856-51-95 13:02:00* Test Item Value Reference Range Interpretation Comments Absolute Neutrophils (test code = 27039-4) 3.9 X10E3/UL 1.4-7.0 [facility] Centerbasophils as percent of blood xmpntlkpfc6952-15-92 13:02:00* Test Item Value Reference Range Interpretation Comments basophils as percent of blood leukocytes (test code = 707-0) 0 % [facility] Centereosinophils as percent of blood mtpzihalzr7542-80-01 13:02:00* Test Item Value Reference Range Interpretation Comments eosinophils as percent of blood leukocytes (test code = 713-8) 2 % [facility] Healthmonocytes as percent of blood nteqjccqjx4255-07-37 13:02:00* Test Item Value Reference Range Interpretation Comments monocytes as percent of blood leukocytes (test code = 5905-5) 7 % [facility] Centerlymphocytes as percent of blood zyaxcwyccv1094-02-32 13:02:00* Test Item Value Reference Range Interpretation Comments lymphocytes as percent of blood leukocytes (test code = 736-9) 37 % [facility] Centerneutrophils as percent of blood vmsafufdrj3279-62-70 13:02:00* Test Item Value Reference Range Interpretation Comments neutrophils as percent of blood leukocytes (test code = 770-8) 54 % [facility] Centerplatelet abmgu5143-08-71 13:02:00* Test Item Value Reference Range Interpretation Comments platelet count (test code = 777-3) 238 X10E3/UL 150-450 [facility] Centerred blood cell distribution grlwg4484-73-00 13:02:00* Test Item Value Reference Range Interpretation Comments red blood cell distribution width (test code = 788-0) 13.7 % 12.3-15.4 [facility] corpuscular hemoglobin concentration, [id number] 13:02:00* Test Item Value Reference Range Interpretation Comments mean corpuscular hemoglobin concentration, RBC (test code = 786-4) 33.4 G/DL 31.5-35.7 [facility] corpuscular hemoglobin, [id number] 13:02:00* Test Item Value Reference Range Interpretation Comments mean corpuscular hemoglobin, RBC (test code = 785-6) 29.7 pg 2 6.6-33.0 [facility] corpuscular volume, [id number] 13:02:00* Test Item Value Reference Range Interpretation Comments mean corpuscular volume, RBC (test code = 787-2) 89 fL 79-97 [facility] Centerhematocrit, gzfvr8220-18-57 13:02:00* Test Item Value Reference Range Interpretation Comments hematocrit, blood (test code = 4544-3) 35.9 % 34.0-46.6 [facility] Centerhemoglobin, mtkvg6890-07-19 13:02:00* Test Item Value Reference Range Interpretation Comments hemoglobin, blood (test code = 718-7) 12.0 g/dL 11.1-15.9 [facility] Centererythrocyte (RBC) hptlg7792-97-24 13:02:00* Test Item Value Reference Range Interpretation Comments erythrocyte (RBC) count (test code = 789-8) 4.04 X10E6/UL 3.77-5.28 [facility] Centerleukocyte count, vdgpx5437-61-99 13:02:00* Test Item Value Reference Range Interpretation Comments leukocyte count, blood (test code = 6690-2) 7.3 X10E3/UL 3.4-10.8 [facility] antibody, ypdva5516-52-99 13:02:00* Test Item Value Reference Range Interpretation Comments hepatitis C antibody, serum (test code = 5199-5) <0.1 0.0-0 .9 [facility]apatitis B surface trzrmfkz4449-03-23 13:02:00* Test Item Value Reference Range Interpretation Comments hepatitis B surface antibody (test code = 78) Reactive [facility]aletis [facility] core antibody, rwzub4640-80-10 13:02:00* Test Item Value Reference Range Interpretation Comments hepatitis B core antibody, total (test code = 77) Negative Nega tive [facility] Centerhepatitis B surface ywacpse1850-96-94 13:02:00* Test Item Value Reference Range Interpretation Comments hepatitis B surface antigen (test code = 79) Negative Negative [facility] Centerlithium, ryuir3508-72-76 15:23:00* Test Item Value Reference Range Interpretation Comments lithium, blood (test code = 00021-8) 0.8 mmol/L 0.6-1.2 [facility] Centererythrocyte sedimentation xrit3040-20-37 15:23:00* Test Item Value Reference Range Interpretation Comments erythrocyte sedimentation rate (test code = 4537-7) 2 mm/h 0- 32 [facility] Centerthyroid stimulating hormone, [id number] 15:23:00* Test Item Value Reference Range Interpretation Comments thyroid stimulating hormone, serum (test code = 3016-3) 2.59 0 u[iU]/mL 0.450-4.500 [facility] Centeralanine aminotransferase (SGPT), vfnvq0215-04-94 15:23:00 * Test Item Value Reference Range Interpretation Comments alanine aminotransferase (SGPT), serum (test code = 1742-6) 15 1/L 0-32 [facility] Centeraspartate aminotransferase (SGOT), wraqa9670-38-17 15:23:00* Test Item Value Reference Range Interpretation Comments aspartate aminotransferase (SGOT), serum (test code = 1920-8) 14 1/ L 0-40 [facility] Centeralkaline phosphatase, [id number] 15:23:00* Test Item Value Reference Range Interpretation Comments alkaline phosphatase, serum (test code = 1783-0) 128 1/L 39-11 7 H [facility] Centerbilirubin, serum, [id number] 15:23:00* Test Item Value Reference Range Interpretation Comments bilirubin, serum, total (test code = 1975-2) 0.3 mg/dL 0.0-1.2 [facility]album[facility]/globulin [facility], [id number] 15:23:00* Test Item Value Reference Range Interpretation Comments albumin/globulin ratio, serum (test code = 1759-0) 2.0 1.2 -2.2 [facility] Healthglobulin, [id number] 15:23:00* Test Item Value Reference Range Interpretation Comments globulin, serum (test code = 2336-6) 2.3 1.5-4.5 [facility] Healthalbumin, [id number] 15:23:00* Test Item Value Reference Range Interpretation Comments albumin, serum (test code = 1751-7) 4.7 g/dL 3.5-5.5 [facility] Healthprotein, total, [id number] 15:23:00* Test Item Value Reference Range Interpretation Comments protein, total, serum (test code = 2885-2) 7.0 g/dL 6.0-8.5 [facility] Healthcalcium, [id number] 15:23:00* Test Item Value Reference Range Interpretation Comments calcium, serum (test code = 2000-8) 9.6 mg/dL 8.7-10.2 [facility] Centercarbon dioxide, venous ihaic4483-59-20 15:23:00* Test Item Value Reference Range Interpretation Comments carbon dioxide, venous blood (test code = 2027-1) 25 mmol/L 18-2 9 [facility] Healthchloride, szacj4919-39-00 15:23:00* Test Item Value Reference Range Interpretation Comments chloride, serum (test code = 2075-0) 101 mmol/L 96-106 [facility] Healthpotassium, imatw7561-95-45 15:23:00* Test Item Value Reference Range Interpretation Comments potassium, serum (test code = 2823-3) 3.9 mmol/L 3.5-5.2 [facility] Healthsodium, [id number] 15:23:00* Test Item Value Reference Range Interpretation Comments sodium, serum (test code = 2951-2) 142 mmol/L 134-144 [facility] Centerurea nitrogen/creatinine ratio, [id number] 15:23:00 * Test Item Value Reference Range Interpretation Comments urea nitrogen/creatinine ratio, serum (test code = 3097-3) 11 9-23 [facility] HealtheGFR if Hxpuzdfn1874-80-65 15:23:00* Test Item Value Reference Range Interpretation Comments eGFR if (test code = 47345-8) 122 mL/min/((173/100 ).m2) >59 [facility] CenterEstimated Glomerular Filtration Rate (calc)2017-11-07 15:23:00* Test Item Value Reference Range Interpretation Comments Estimated Glomerular Filtration Rate (calc) (test code = 89265-5) 106 mL/min/((173/100).m2) >59 [facility] Centercreatinine, [id number] 15:23:00* Test Item Value Reference Range Interpretation Comments creatinine, serum (test code = 2160-0) 0.62 mg/dL 0.57-1.00 [facility] Centerurea nitrogen, [id number] 15:23:00* Test Item Value Reference Range Interpretation Comments urea nitrogen, blood (test code = 3094-0) 7 mg/dL 6-24 [facility] Centerblood glucose, [id number] 15:23:00* Test Item Value Reference Range Interpretation Comments blood glucose, random (test code = 2339-0) 82 mg/dL 65-99 [facility]imm[facility], percentage of total cells, blood 2017-11-07 15:23:00* Test Item Value Reference Range Interpretation Comments immature granulocytes, percentage of total cells, bloo d (test code = 31514-7) 0 % [facility]bas[facility], [id number] 15:23:00* Test Item Value Reference Range Interpretation Comments basophil count, absolute (test code = 27038-1) 0.0 x10E3/uL 0.0-0.2 [facility] CenterEosinophil Absolute [id number] 15:23:00* Test Item Value Reference Range Interpretation Comments Eosinophil Absolute Count (test code = 05671-2) 0.3 X10E3/UL 0.0-0. 4 [facility] Centermonocyte count, blood, [id number] 15:23:00* Test Item Value Reference Range Interpretation Comments monocyte count, blood, automated (test code = 742-7) 0.6 X10E3/UL 0 .1-0.9 [facility]lymph[facility], blood, [id number] 15:23:00* Test Item Value Reference Range Interpretation Comments lymphocyte count, blood, automated (test code = 731-0) 2.4 X10E3/UL 0.7-3.1 [facility] CenterAbsolute [id number] 15:23:00* Test Item Value Reference Range Interpretation Comments Absolute Neutrophils (test code = 36281-8) 4.8 X10E3/UL 1.4-7.0 [facility]basophils as percent of blood [id number] 15:23:00* Test Item Value Reference Range Interpretation Comments basophils as percent of blood leukocytes (test code = 707-0) 0 % [facility]ereosin[facility] percent of blood [id number] 15:23:00* Test Item Value Reference Range Interpretation Comments eosinophils as percent of blood leukocytes (test code = 713-8) 4 % [facility]ermonocytes as percent of blood [id number] 15:23:00* Test Item Value Reference Range Interpretation Comments monocytes as percent of blood leukocytes (test code = 5905-5) 7 % [facility]lymphocytes [facility] percent of blood [id number] 15:23:00* Test Item Value Reference Range Interpretation Comments lymphocytes as percent of blood leukocytes (test code = 736-9) 29 % [facility]neutrophils as percent of blood [id number] 15:23:00* Test Item Value Reference Range Interpretation Comments neutrophils as percent of blood leukocytes (test code = 770-8) 60 % [facility] Centerplatelet [id number] 15:23:00* Test Item Value Reference Range Interpretation Comments platelet count (test code = 777-3) 271 X10E3/UL 150-379 [facility] Centerred blood cell distribution [id number] 15:23:00* Test Item Value Reference Range Interpretation Comments red blood cell distribution width (test code = 788-0) 14.4 % 12.3-15.4 [facility] Centermean corpuscular hemoglobin concentration, [id number] 15:23:00* Test Item Value Reference Range Interpretation Comments mean corpuscular hemoglobin concentration, RBC (test code = 786-4) 33.6 G/DL 31.5-35.7 [facility] Centermean corpuscular hemoglobin, [id number] 15:23:00* Test Item Value Reference Range Interpretation Comments mean corpuscular hemoglobin, RBC (test code = 785-6) 29.3 pg 2 6.6-33.0 [facility] Centermean corpuscular volume, [id number] 15:23:00* Test Item Value Reference Range Interpretation Comments mean corpuscular volume, RBC (test code = 787-2) 87 fL 79-97 [facility] Centerhematocrit, [id number] 15:23:00* Test Item Value Reference Range Interpretation Comments hematocrit, blood (test code = 4544-3) 39.0 % 34.0-46.6 [facility] Centerhemoglobin, [id number] 15:23:00* Test Item Value Reference Range Interpretation Comments hemoglobin, blood (test code = 718-7) 13.1 g/dL 11.1-15.9 [facility] Centererythrocyte (RBC) [id number] 15:23:00* Test Item Value Reference Range Interpretation Comments erythrocyte (RBC) count (test code = 789-8) 4.47 X10E6/UL 3.77-5.28 [facility] Centerleukocyte count, [id number] 15:23:00* Test Item Value Reference Range Interpretation Comments leukocyte count, blood (test code = 6690-2) 8.1 X10E3/UL 3.4-10.8 [facility]
[2020-04-05] MEDS ORDERED: IOPAMIDOL 370 MG/ML 200 ML INFUS..BTL INJ ONE (18:09)
[2020-04-05] MEDS ORDERED: SODIUM CHLORIDE 0.9% 100 ML ONE (18:09)
--- NOTE | 2020-04-05 19:37 | Diagnostic Imaging Report ---
EXAM: CTA of the Abdominal Aorta and Pelvic Arteries WITH Contrast INDICATION: Diffuse abdominal pain. COMPARISON: None. TECHNIQUE: Multi-detector CT technology was employed. CTA of the abdomen and pelvis was performed after the administration of IV contrast. IV CONTRAST: 150 mL of Omnipaque 350 ORAL CONTRAST: None COMPLICATIONS: None RADIATION DOSE: Total DLP: 1218.58 mGy*cm Estimated effective dose: (DLP x 0.015 x size factor) mSv CTDIvol has been reviewed. It is below the limits set by the Radiation Protocol Committee (RPC). Dose modulation, iterative reconstruction, and/or weight based adjustment of the mA/kV was utilized to reduce the radiation dose to as low as reasonably achievable. For optimization of anatomic evaluation, multiplanar reconstruction, maximum intensity projections, and advanced 3-D off-line postprocessing were performed on a dedicated stand-alone workstation under the direct supervision of the interpreting physician. FINDINGS: Potential study limitations: None. VASCULAR WITH ADVANCED 3-D OFF-LINE POSTPROCESSING: The abdominal aorta is normal in course, caliber, and contour. There is no acute aortic pathology . Aortic plaques: Mild. The abdominal aorta measures: 2.3 x 2.2 cm at the supramesenteric segment 2.0 x 2.0 cm at the mesenteric segment 1.9 x 1.9 cm at the renal segment 1.6 x 1.5 cm at the mid infrarenal segment 1.4 x 1.4 cm at the aortic bifurcation. The celiac axis, SMA, and RAJENDRA are patent. There are single renal arteries bilaterally, both of which appear patent. The pelvic arteries are normal in caliber and contour. There are mild atherosclerotic changes of the pelvic arteries. 1.1x 1.0 cm at the right common iliac artery 1.1 x 1.1 cm at the right external iliac artery LOWER CHEST: Unremarkable. ABDOMEN: The liver, gallbladder, spleen, and pancreas appear normal. The adrenal glands appear normal. Both kidneys are normal in size, shape, and density. There is no abnormal mass or hydronephrosis. There is a 2 mm nonobstructive stone in the midpole of the left kidney. PELVIS: There is no significant retroperitoneal adenopathy. No free fluid or free air within the abdomen or pelvis. The bowel appears unremarkable. The urinary bladder appears normal. BONES: Status post L4-L5 posterior spinal fusion. No evidence of hardware complication. Multilevel degenerative spine disease with no suspicious osteolytic or osteoblastic lesions. Soft tissues: Incompletely imaged dense structure in the anterior lower pelvic soft tissues. IMPRESSION: 1. Normal abdominal aorta. No acute abdominal aortic pathology. 2. Nonobstructive left nephrolithiasis. Signed by: Jourdan Beltran MD on 04/05/2020 7:34 PM
[2020-04-05 19:57] VITALS: BP 108/91
== END 2020-04-05 20:03 | disposition home or self-care (01) ==
LOC: ER 16:22
DX: R10.9 Unspecified abdominal pain (principal); R11.2 Nausea with vomiting, unspecified; R14.0 Abdominal distension (gaseous); K62.5 Hemorrhage of anus and rectum
CPT/HCPCS: 36415; 74174; 80053; 81001; 83690; 85025; 85610; 93005; 99284; J1170; J2405; J7050; Q9967